=== PATIENT | male | born 1955 | race Caucasian/White ===

== ENCOUNTER 2016-07-12 09:21 | Emergency (ER) | payer MEDICAID ==
--- NOTE | 2016-07-12 10:08 | EDM.PDOC ---
[id number] 4d RT ABD PAIN Time Seen by Provider: 07/12/16 09:55 Source: Reports: Patient, Family History Limitations: Reports: No limitations - History of Present Illness INITIAL COMMENTS - FREE TEXT/NARRATIVE: 61-year-old male who had a radical prostatectomy 10 days ago was doing better but over the past 3 days has worsened with increased abdominal pain. He was in the emergency room 2 days ago with acute urinary retention. He is now developing a fever, and any oral intake causes increased pain. He cannot get up out of bed without assistance. Location: generalized Quality: Reports: cramping, stabbing Severity: moderate Associated Symptoms: Reports: fever/chills, malaise. Denies: chest pain, diarrhea, nausea/vomiting - Related Data Allergies/ADRs: Allergies Allergy/AdvReac Type Severity Reaction Status Date / Time No Known Allergies Allergy Verified 07/12/16 09:35 Home Meds: Home Meds Acetaminophen [Tylenol Extra Strength] 2 tab PO Q8H PRN 07/12/16 [History] Aspirin [Adult Low Dose Aspirin EC] 81 mg PO DAILY 07/12/16 [History] Lisinopril [Prinivil] 40 mg PO DAILY 07/12/16 [History] Metoprolol Succinate [Toprol XL] 50 mg PO DAILY 07/12/16 [History] Multivitamin [Multi-Day Vitamins] 1 tab PO DAILY 07/12/16 [History] Pravastatin Sodium [Pravachol] 20 mg PO BEDTIME 07/12/16 [History] Sennosides/Docusate Sodium [Senokot-S Tablet] 2 each PO BEDTIME 07/12/16 [ History] Past Medical History Cardiovascular History: Reports: High cholesterol, Hypertension, Other (see below) Other Cardiovascular History: ductus Gastrointestinal History: Reports: GERD Genitourinary History: Reports: Prostate disorder Musculoskeletal History: Reports: Fracture Other Musculoskeletal History: l arm Oncologic (Cancer) History: Reports: Pancreatic - Infectious Disease History Infectious Disease History: Reports: C-difficile - Past Surgical History GI Surgical History: Reports: Colonoscopy Male Surgical History: Reports: Prostatectomy Social & Family History - Tobacco Use Smoking Status *Q: Never Smoker Second Hand Smoke Exposure: No - Caffeine Use Caffeine Use: Reports: Soda - Alcohol Use Days Per Week of Alcohol Use: 1 Number of Drinks Per Day: 1 Total Drinks Per Week: 1 - Recreational Drug Use Recreational Drug Use: No ED ROS GENERAL - Review of Systems Review Of Systems: See Below Constitutional: Reports: fever, chills, malaise, weakness HEENT: Reports: No symptoms Respiratory: Denies: Shortness of Breath Cardiovascular: Denies: Chest pain GI/Abdominal: Reports: Abdominal pain, Decreased appetite (Pain with eating) ED EXAM, GI/ABD - Physical Exam Exam: See Below Exam Limited By: No limitations General Appearance: alert, no apparent distress Eyes: bilateral: normal appearance Head: atraumatic Respiratory/Chest: no respiratory distress, lungs clear Cardiovascular: regular rate, rhythm, tachycardia GI/Abdominal: normal bowel sounds, soft, tenderness (Diffusely tender to palpation, incisions look excellent) Extremities: normal inspection. No: pedal edema Neurological: alert, oriented Psychiatric: normal affect, normal mood Skin Exam: Warm, Dry Course - Vital Signs Last Recorded V/S: Last Vital Signs Temp 99.0 F 07/12/16 12:09 Pulse 105 H 07/12/16 12:09 Resp 16 07/12/16 12:09 BP 119/62 07/12/16 12:09 Pulse Ox 93 L 07/12/16 12:09 - Orders/Labs/Meds Orders: Active Orders 24 hr Category Date Time Status CULTURE BLOOD [BC] Stat Lab 07/12/16 10:15 Received CULTURE BLOOD [BC] Urgent Lab 07/12/16 10:20 Received Blood Culture x2 Reflex Set [OM.PC] Urgent Oth 07/12/16 10:15 Ordered Labs: Laboratory Tests 07/12/16 07/12/16 07/12/16 Range/Units 10:02 10:11 10:11 WBC 5.8 (4.5-11.0) K/uL RBC 3.39 L (4.30-5.90) M/uL Hgb 10.2 L (12.0-15.0) g/dL Hct 32.3 L (40.0-54.0) % MCV 95 (80-98) fL MCH 30 (27-31) pg MCHC 32 (32-36) % Plt Count 252 (150-400) K/uL Neut % (Auto) 91 H (36-66) % Lymph % (Auto) 5 L (24-44) % [place] % (Auto) 4 (2-6) % Eos % (Auto) 0 L (2-4) % Baso % (Auto) 0 (0-1) % Sodium 137 L (140-148) mmol/L Potassium 3.8 (3.6-5.2) mmol/L Chloride 101 (100-108) mmol/L Carbon Dioxide 29 (21-32) mmol/L Anion Gap 10.8 (5.0-14.0) mmol/L BUN 29 H (7-18) mg/dL Creatinine 2.0 H (0.8-1.3) mg/dL Est Cr Clr Drug Dosing 42.57 mL/min Estimated GFR (MDRD) 34 L (>60) Glucose 121 H (74-106) mg/dL Lactic Acid 0.8 (0.7-2.1) mmol/L Calcium 8.4 L (8.5-10.1) mg/dL Urine Color Urine Appearance Urine pH (4.5-8.0) Ur Specific [place] (1.008-1.030) Urine Protein (NEGATIVE) mg/dL Urine Glucose (UA) (NEGATIVE) mg/dL Urine Ketones (NEGATIVE) mg/dL Urine Occult Blood (NEGATIVE) Urine Nitrite (NEGAITVE) Urine Bilirubin (NEGATIVE) Urine Urobilinogen (NORMAL) mg/dL Ur Leukocyte Esterase (NEGATIVE) Urine RBC (0-5) Urine WBC (0-5) Ur Epithelial Cells Amorphous Sediment Urine Bacteria Urine Mucus Urine Other 07/12/16 Range/Units 11:17 WBC (4.5-11.0) K/uL RBC (4.30-5.90) M/uL Hgb (12.0-15.0) g/dL Hct (40.0-54.0) % MCV (80-98) fL MCH (27-31) pg MCHC (32-36) % Plt Count (150-400) K/uL Neut % (Auto) (36-66) % Lymph % (Auto) (24-44) % [place] % (Auto) (2-6) % Eos % (Auto) (2-4) % Baso % (Auto) (0-1) % Sodium (140-148) mmol/L Potassium (3.6-5.2) mmol/L Chloride (100-108) mmol/L Carbon Dioxide (21-32) mmol/L Anion Gap (5.0-14.0) mmol/L BUN (7-18) mg/dL Creatinine (0.8-1.3) mg/dL Est Cr Clr Drug Dosing mL/min Estimated GFR (MDRD) (>60) Glucose (74-106) mg/dL Lactic Acid (0.7-2.1) mmol/L Calcium (8.5-10.1) mg/dL Urine Color Yellow Urine Appearance Slightly cloudy Urine pH 5.0 (4.5-8.0) Ur Specific [place] 1.010 (1.008-1.030) Urine Protein Negative (NEGATIVE) mg/dL Urine Glucose (UA) Normal (NEGATIVE) mg/dL Urine Ketones Negative (NEGATIVE) mg/dL Urine Occult Blood Large (NEGATIVE) Urine Nitrite Negative (NEGAITVE) Urine Bilirubin Small (NEGATIVE) Urine Urobilinogen Normal (NORMAL) mg/dL Ur Leukocyte Esterase Negative (NEGATIVE) Urine RBC 20-30 H (0-5) Urine WBC 0-5 (0-5) Ur Epithelial Cells Rare Amorphous Sediment Not seen Urine Bacteria Not seen Urine Mucus Few Urine Other - Re-Assessments/Exams Free Text/Narrative Re-Assessment/Exam: 07/12/16 11:47 CBC BMP and UA were obtained. White count was normal, urine was clear, creatinine was 2.0. A CT of the abdomen and pelvis was done without contrast which showed some pelvic collection of fluid which was felt to possibly be hematoma, but in discussing with the urologist who did the surgery he felt these were likely remnants of lymph node removal. Blood cultures were obtained because of the fever. The urologist recommended placing the patient on antibiotics through the weekend and he will talk with the patient on Friday. Departure - Departure Time of Disposition: 12:11 Disposition: Home, Self-Care 01 Condition: good Clinical Impression: Postoperative fever Abdominal pain Qualifiers: Abdominal location: lower abdomen, unspecified Qualified Code(s): R10.30 - Lower abdominal pain, unspecified Instructions: Fever, Adult Referrals: Johnathan Rojas PA-C [Primary Care Provider] - Forms: ED Department Discharge Care Plan Goals: Take antibiotic twice daily with food as prescribed and continue your other medications. Continue treating pain as needed and return if worsening or concerns. Dr. Terry wants to hear from you on Friday regarding your progress. - My Orders Last 24 Hours: My Active Orders 07/12/16 10:15 CULTURE BLOOD [BC] Stat Blood Culture x2 Reflex Set [OM.PC] Urgent 07/12/16 10:20 CULTURE BLOOD [BC] Urgent - Assessment/Plan Last 24 Hours: My Active Orders 07/12/16 10:15 CULTURE BLOOD [BC] Stat Blood Culture x2 Reflex Set [OM.PC] Urgent 07/12/16 10:20 CULTURE BLOOD [BC] Urgent
--- NOTE | 2016-07-12 11:22 | CT ---
CT abdomen and pelvis Total DLP 1130. Findings: There is streaky density within the right lung base. There is elevation of the right hemid iaphragm. Minimal atelectatic change left lung base. Fatty infiltration of the liver. Gallbladder wi thin normal limits. Pancreas demonstrates fatty infiltration of the uncinate process and head. Splee n within normal limits. Adrenal glands are within normal limits. No dilated loops of small bowel. La rge amount of fecal residual. The appendix is nonvisualized. Terminal ileum within normal limits. Th ere is a right renal cyst up to 5 cm. Exophytic 1 cm mass right lateral kidney with Hounsfield units of 50. Probable other cysts within the right kidney. No hydronephrosis within the right kidney. No hydroureter on the right. Perinephric fat stranding left kidney. No hydronephrosis left kidney. Athe rosclerotic nonaneurysmal aorta. Bladder is decompressed. Anteriorly and eccentric to the right in the bladder is a focal 5 mm density of increased attenuati on. Referred axial image #[id number]. Along the right pelvic sidewall musculature eccentric to the right is a 6.6 cm AP mass x 4.3 cm transverse mass measuring 6.7 cm and superior to inferior dimension. Ther e is mixed high attenuation within it which appears heterogeneous and increased. Thickened rim about it. Tiny focus of air within it superiorly. Adjacent to the left anterior aspect of the bladder and just deep to the left common femoral artery is a smaller collection measuring 2.8 cm in maximal dim ension. Trace amount of fluid at the prostate for prostate bed. There are areas of abdominal wall gonzalez bcutaneous foci of air. A tiny amount of intraperitoneal air is evident as well. Directly above the umbilicus is subcutaneous hazy density extending into the musculature without focal fluid collection . Mild amount of paracolic gutter fluid bilaterally may be postoperative. Impression: 1. Status post prostatectomy with bilateral right greater than left is complex fluid collections martha ng the pelvic sidewalls. Largest on the right with size measurements above. Tiny focus of air. Findi ngs could indicate a hematoma. Infected hematoma could have this appearance. 2. No hydronephrosis. 3. Probable cysts and hemorrhagic cyst right kidney but should be confirmed with ultrasound or CT ur ogram follow-up. 4. Streaky density right lung base may indicate atelectasis. Developing infiltrate not excluded. 5. Subcutaneous skin thickening at the midline directly above the umbilicus. Correlate for celluliti s in this location. 6. Tiny focus of increased attenuation at 5 mm within the right lateral anterior aspect of the bladd er. Blood clot could have this appearance. Tiny mass not excluded. Consider ultrasound or cystoscopy follow-up.
[2016-07-12 12:10] VITALS: BP 119/62
== END 2016-07-12 12:11 | disposition home or self-care (01) ==
LOC: JP.ED 09:21
DX: R50.82 Postprocedural fever (principal); R10.30 Lower abdominal pain, unspecified; I10 Essential (primary) hypertension; E78.00 Pure hypercholesterolemia, unspecified; K21.9 Gastro-esophageal reflux disease without esophagitis; Z85.07 Personal history of malignant neoplasm of pancreas; Z90.79 Acquired absence of other genital organ(s); Z79.82 Long term (current) use of aspirin; Z79.899 Other long term (current) drug therapy
CPT/HCPCS: 36415; 74176; 74176-26; 80048; 81001; 83605; 85025; 87040; 99284-25

== ENCOUNTER 2019-01-21 06:57 | Day surgery (SDC) | payer MEDICAID ==
[2019-01-21] MEDS ORDERED: Sodium Chloride 0.9% 1,000 ML IV SCH (07:45)
[2019-01-21] MEDS ORDERED: Midazolam 1 MG/ML 2 ML SDV ONE (08:00)
[2019-01-21] MEDS ORDERED: Propofol 200 MG/20 ML SDV ONE (08:00)
[2019-01-21] MEDS ORDERED: fentaNYL 100 MCG/2 ML SDV ONE (08:00)
[2019-01-21 10:31] VITALS: BP 108/69; PULSE 94
--- NOTE | 2019-01-21 11:45 | OR ---
DATE OF PROCEDURE: 01/21/2019 SURGEON: Gerber Ramon MD PROCEDURE: Colonoscopy. FINDINGS: 1. No prostate cancer, malignancy-associated findings. 2. Ascending colon polyp, approximately 5 mm, completely removed using hot biopsy forceps. 3. Transverse colon polyp, approximately 8 mm, completely removed using hot biopsy forceps. 4. Diverticulosis, very mild, limited to sigmoid colon without evidence of diverticulitis. COMPLICATIONS: None. LABELLING MACHINE OPERATOR: None. PREOPERATIVE DIAGNOSIS: History of prostate cancer/screening colonoscopy. POSTOPERATIVE DIAGNOSIS: History of prostate cancer/screening colonoscopy. RISKS: Risks, benefits, alternatives, and limitations including, but not limited to infection, bleeding, and perforation were explained to the patient, and they wished to proceed. PROCEDURE IN DETAIL: The patient was placed in left lateral decubitus position. Digital rectal exam was performed without abnormality. The scope was introduced atraumatically to the ileocecal valve. The scope was brought back through the ascending, transverse, descending colon, and retroflexed. The polyps were completely removed. There was no evidence of colitis. No masses. No concerning lesions. No abnormalities on retroflexion. The patient tolerated the procedure well. Gerber Ramon MD /[id number]
== END 2019-01-21 10:03 | disposition home or self-care (01) ==
LOC: JP.SDS 06:57
PROVIDERS: ATTEND Surgery
DX: Z12.11 Encounter for screening for malignant neoplasm of colon (principal); D12.2 Benign neoplasm of ascending colon; D12.3 Benign neoplasm of transverse colon; K57.30 Diverticulosis of large intestine without perforation or abscess without bleeding; I10 Essential (primary) hypertension; I70.0 Atherosclerosis of aorta; Z88.8 Allergy status to other drugs, medicaments and biological substances; Z85.46 Personal history of malignant neoplasm of prostate
CPT/HCPCS: 45384; J2250; J2704; J3010; 88305

== ENCOUNTER 2019-03-30 11:07 | Emergency (ER) | payer MEDICAID ==
[2019-03-30] MEDS ORDERED: Aspirin 81 MG Tab.Chew PO ONE (11:42)
[2019-03-30] MEDS ORDERED: Sodium Chloride 0.9% 1,000 ML IV SCH (11:45)
--- NOTE | 2019-03-30 11:46 | EDM.PDOC ---
ED HPI GENERAL MEDICAL PROBLEM - General Chief Complaint: Chest Pain Stated Complaint: S.O.B. LIGHT HEADED Time Seen by Provider: 03/30/19 11:36 Source of Information: Reports: Patient, Family, Old Records, RN Notes Reviewed History Limitations: Reports: No Limitations - History of Present Illness INITIAL COMMENTS - FREE TEXT/NARRATIVE: 63-year-old gentleman presents emergency department a complaint of shortness of breath with chest pain. He has a known history of a patent ductus arteriosus, prostate cancer with metastases currently undergoing chemotherapy he does take a daily aspirin. States over the last 3 days he is gotten progressively more short of breath particularly when he exerts himself he is also noticed palpitations. No history of pulmonary embolism left chest Pain Score (Numeric/FACES): 1 - Related Data Allergies Allergy/AdvReac Type Severity Reaction Status Date / Time albuterol [From ProAir HFA] Allergy Cannot Verified 03/30/19 11:17 Remember Home Meds: Home Meds Acetaminophen [Tylenol Extra Strength] 2 tab PO Q8H PRN 07/12/16 [History] Aspirin [Adult Low Dose Aspirin EC] 81 mg PO DAILY 07/12/16 [History] Lisinopril [Prinivil] 40 mg PO DAILY 07/12/16 [History] Metoprolol Succinate [Toprol XL] 50 mg PO DAILY 07/12/16 [History] Multivitamin [Multi-Day Vitamins] 1 tab PO DAILY 07/12/16 [History] Pravastatin Sodium [Pravachol] 80 mg PO BEDTIME 07/12/16 [History] Sennosides/Docusate Sodium [Senokot-S Tablet] 2 each PO BEDTIME 07/12/16 [ History] Calcium Carbonate/Vitamin D3 [Calcium 1,000 + D3 Caplet] 1 tab PO DAILY [History] Pantoprazole Sodium [Protonix] 20 mg PO DAILY 01/19/19 [History] predniSONE [Prednisone] 5 mg PO BID 01/19/19 [History] Leuprolide [Lupron Depot 3-Month] 1 injection INJECT ASDIRECTED 03/30/19 [ History] dexAMETHasone [Dexamethasone] 2 mg PO BEDTIME 03/30/19 [History] dexAMETHasone [Dexamethasone] 4 mg PO DAILY 03/30/19 [History] Past Medical History Cardiovascular History: Reports: Heart Murmur, High Cholesterol, Hypertension, Other (See Below) Other Cardiovascular History: ductus Gastrointestinal History: Reports: GERD Genitourinary History: Reports: Prostate Disorder Musculoskeletal History: Reports: Fracture Other Musculoskeletal History: l arm, l hip Oncologic (Cancer) History: Reports: Bone, Prostate - Infectious Disease History Infectious Disease History: Reports: C-Difficile - Past Surgical History GI Surgical History: Reports: Colonoscopy, Polypectomy Oncologic Surgical History: Reports: Mastectomy Social & Family History - Tobacco Use Smoking Status *Q: Never Smoker - Caffeine Use Caffeine Use: Reports: Soda - Recreational Drug Use Recreational Drug Use: No ED ROS GENERAL - Review of Systems Review Of Systems: See Below Constitutional: Reports: No Symptoms. Denies: Diaphoresis HEENT: Reports: No Symptoms Respiratory: Reports: Shortness of Breath. Denies: Wheezing, Cough, Sputum Cardiovascular: Reports: Chest Pain, Dyspnea on Exertion GI/Abdominal: Reports: No Symptoms : Reports: No Symptoms Musculoskeletal: Reports: No Symptoms Skin: Reports: No Symptoms ED EXAM, GENERAL - Physical Exam Exam: See Below Exam Limited By: No Limitations General Appearance: Alert, WD/WN, No Apparent Distress Head: Atraumatic, Normocephalic Neck: Normal Inspection, Supple, Non-Tender, Full Range of Motion Respiratory/Chest: No Respiratory Distress, Lungs Clear, Normal Breath Sounds, No Accessory Muscle Use, Chest Non-Tender Cardiovascular: No Murmur, Tachycardia GI/Abdominal: Soft, Non-Tender Extremities: Normal Inspection, No Pedal Edema Course - Vital Signs Last Recorded V/S: Last Vital Signs Temp 96.8 F 03/30/19 11:19 Pulse 109 H 03/30/19 13:06 Resp 20 03/30/19 13:06 BP 108/57 L 03/30/19 13:06 Pulse Ox 99 03/30/19 13:06 - Orders/Labs/Meds Orders: Active Orders 24 hr Category Date Time Status Cardiac Monitoring [RC] .As Directed Care 03/30/19 11:42 Active EKG Documentation Completion [RC] ASDIRECTED Care 03/30/19 11:43 Active Peripheral IV Care [RC] . DIRECTED Care 03/30/19 11:42 Active Sodium Chloride 0.9% [Normal Saline] 1,000 ml Med 03/30/19 11:45 Active IV ASDIRECTED Sodium Chloride 0.9% [Saline Flush] Med 03/30/19 11:42 Active 10 ml FLUSH ASDIRECTED PRN Peripheral IV Insertion Adult [OM.PC] Stat Oth 03/30/19 11:42 Ordered EKG 12 Lead [EK] Stat Ther 03/30/19 11:43 Ordered Medication Orders Sodium Chloride (Normal Saline) 1,000 mls @ 500 mls/hr IV ASDIRECTED DONOVAN Last Admin: 03/30/19 11:48 Dose: 500 mls/hr Sodium Chloride (Saline Flush) 10 ml FLUSH ASDIRECTED PRN PRN Reason: Keep Vein Open Last Admin: 03/30/19 13:10 Dose: 10 ml Admin: 03/30/19 11:52 Dose: 10 ml Labs: Laboratory Tests 03/30/19 03/30/19 03/30/19 Range/Units 11:42 11:42 11:42 WBC 2.9 L (4.5-11.0) K/uL RBC 3.15 L (4.30-5.90) M/uL Hgb 8.1 L D (12.0-15.0) g/dL Hct 27.6 L (40.0-54.0) % MCV 88 (80-98) fL MCH 26 L (27-31) pg MCHC 29 L (32-36) % Plt Count 233 (150-400) K/uL Neut % (Auto) 75 H (36-66) % Lymph % (Auto) 20 L (24-44) % [place] % (Auto) 3 (2-6) % Eos % (Auto) 1 L (2-4) % Baso % (Auto) 0 (0-1) % D-Dimer, Quantitative 1190 H (0.0-400.0) ng/mL Sodium 135 L (140-148) mmol/L Potassium 3.9 (3.6-5.2) mmol/L Chloride 101 (100-108) mmol/L Carbon Dioxide 26 (21-32) mmol/L Anion Gap 11.9 (5.0-14.0) mmol/L BUN 24 H (7-18) mg/dL Creatinine 1.1 (0.8-1.3) mg/dL Est Cr Clr Drug Dosing 79.92 mL/min Estimated GFR (MDRD) > 60 (>60) Glucose 187 H (74-106) mg/dL Lactic Acid (0.4-2.0) mmol/L Calcium 8.5 (8.5-10.1) mg/dL Total Bilirubin 0.2 (0.2-1.0) mg/dL AST 30 (15-37) U/L ALT 28 (12-78) U/L Alkaline Phosphatase 536 H (46-116) U/L Troponin I < 0.017 (0.000-0.056) ng/mL NT-Pro-B Natriuret Pep 41 (5-125) pg/mL Total Protein 6.9 (6.4-8.2) g/dL Albumin 3.5 (3.4-5.0) g/dL Globulin 3.4 (2.3-3.5) g/dL Albumin/Globulin Ratio 1.0 L (1.2-2.2) 03/30/19 Range/Units 11:42 WBC (4.5-11.0) K/uL RBC (4.30-5.90) M/uL Hgb (12.0-15.0) g/dL Hct (40.0-54.0) % MCV (80-98) fL MCH (27-31) pg MCHC (32-36) % Plt Count (150-400) K/uL Neut % (Auto) (36-66) % Lymph % (Auto) (24-44) % [place] % (Auto) (2-6) % Eos % (Auto) (2-4) % Baso % (Auto) (0-1) % D-Dimer, Quantitative (0.0-400.0) ng/mL Sodium (140-148) mmol/L Potassium (3.6-5.2) mmol/L Chloride (100-108) mmol/L Carbon Dioxide (21-32) mmol/L Anion Gap (5.0-14.0) mmol/L BUN (7-18) mg/dL Creatinine (0.8-1.3) mg/dL Est Cr Clr Drug Dosing mL/min Estimated GFR (MDRD) (>60) Glucose (74-106) mg/dL Lactic Acid 2.0 (0.4-2.0) mmol/L Calcium (8.5-10.1) mg/dL Total Bilirubin (0.2-1.0) mg/dL AST (15-37) U/L ALT (12-78) U/L Alkaline Phosphatase (46-116) U/L Troponin I (0.000-0.056) ng/mL NT-Pro-B Natriuret Pep (5-125) pg/mL Total Protein (6.4-8.2) g/dL Albumin (3.4-5.0) g/dL Globulin (2.3-3.5) g/dL Albumin/Globulin Ratio (1.2-2.2) Meds: Medications Generic Name Dose Route Start Last Admin Trade Name Freq PRN Reason Stop Dose Admin Sodium Chloride 1,000 mls @ 500 mls/hr 03/30/19 11:45 03/30/19 11:48 Normal Saline IV 500 mls/hr ASDIRECTED DONOVAN Administration Sodium Chloride 10 ml 03/30/19 11:42 03/30/19 13:10 Saline Flush FLUSH 10 ml ASDIRECTED PRN Administration Keep Vein Open Discontinued Medications Generic Name Dose Route Start Last Admin Trade Name Freq PRN Reason Stop Dose Admin Aspirin 324 mg 03/30/19 11:42 03/30/19 11:47 Aspirin PO 03/30/19 11:43 324 mg ONETIME ONE Administration Sodium Chloride 100 mls @ 4 mls/sec 03/30/19 12:45 03/30/19 13:11 Normal Saline IV 03/30/19 12:46 4 mls/sec ASDIRECTED DONOVAN Administration Iopamidol 100 ml 03/30/19 12:35 03/30/19 13:10 [id number] (76%) IV 03/30/19 12:36 100 ml . DIRECTED ONE Administration Departure - Departure Time of Disposition: 15:00 Disposition: Home, Self-Care 01 Condition: Fair Clinical Impression: Dyspnea Qualifiers: Dyspnea type: dyspnea on exertion Qualified Code(s): R06.09 - Other forms of dyspnea Referrals: Delroy Cardoza MD [Primary Care Provider] - Forms: ED Department Discharge Additional Instructions: Recommend picking up a blood pressure cuff, stop your metoprolol take your blood pressure and heart rate twice a day at random times collect 3 to 4 days of data then follow-up with your primary care for reevaluation. Call or return to the emergency department worsening of symptoms Sepsis Event Note - Evaluation Sepsis Screening Result: No Definite Risk - Focused Exam Vital Signs: Vital Signs Temp Pulse Resp BP Pulse Ox 03/30/19 13:06 109 H 20 108/57 L 99 03/30/19 11:19 96.8 F 121 H 17 132/72 97 03/30/19 11:14 98.6 F 120 H 22 H 132/72 98 Date Exam was Performed: 03/30/19 Time Exam was Performed: 14:57 - My Orders Last 24 Hours: My Active Orders 03/30/19 11:42 Cardiac Monitoring [RC] .As Directed Peripheral IV Care [RC] . DIRECTED Sodium Chloride 0.9% [Saline Flush] 10 ml FLUSH ASDIRECTED PRN Peripheral IV Insertion Adult [OM.PC] Stat 03/30/19 11:43 EKG Documentation Completion [RC] ASDIRECTED EKG 12 Lead [EK] Stat 03/30/19 11:45 Sodium Chloride 0.9% [Normal Saline] 1,000 ml IV ASDIRECTED - Assessment/Plan Last 24 Hours: My Active Orders 03/30/19 11:42 Cardiac Monitoring [RC] .As Directed Peripheral IV Care [RC] . DIRECTED Sodium Chloride 0.9% [Saline Flush] 10 ml FLUSH ASDIRECTED PRN Peripheral IV Insertion Adult [OM.PC] Stat 03/30/19 11:43 EKG Documentation Completion [RC] ASDIRECTED EKG 12 Lead [EK] Stat 03/30/19 11:45 Sodium Chloride 0.9% [Normal Saline] 1,000 ml IV ASDIRECTED Plan: Assessment Acuity = acute Site and laterality = dyspnea on exertion complicating the patient with known history of prostate cancer with metastases Etiology = unknown Manifestations = none Location of injury = Home Lab values = WBC low at 2.9 consistent leukopenia, hemoglobin low at 8.1 consistent with normochromic anemia d-dimer elevated 1190 uncertain significance troponin was negative chest x-ray shows no acute process CT scan angios shows no pulmonary embolism EKG no signs of ST elevation or depression Plan Did review lab work with him he was able to ambulate around the emergency department without difficulty O2 saturations never dipped below 98% however at the end of that he felt dyspneic heart rate did respond up to the 140s but then back down to around 100 I did review cardiology's note she has had a heart cath in 2018 after his abnormal stress test showed normal coronary arteries cardiology was suspicious for drug involvement causing the dyspnea versus small vessel ischemic disease. 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
[2019-03-30] MEDS: Sodium Chloride 0.9% 10 ML Syringe FLUSH PRN ×2 (11:52→13:10)
--- NOTE | 2019-03-30 12:28 | CRLCR ---
Indication: Chest pain Technique: Chest 1 view Comparison: CT chest February 10, 2019 Findings/Impression: Cardiovascular and mediastinum: Heart size and vasculature are normal in caliber and appearance. Mediastinum is within normal limits. Lungs and pleural space: Lungs are clear. No sign of infiltrate or mass. No sign of pleural effusion. No pneumothorax. Bones and soft tissues: Stable elevation of the right hemidiaphragm. Dictated by Juliette Carlos MD @ Mar 30 2019 12:25PM Signed by Dr. Juliette Carlos @ Mar 30 2019 12:26PM
[2019-03-30] MEDS ORDERED: Iopamidol 755 Mg/ML 100 ML Bottle IV ONE (12:35)
[2019-03-30] MEDS ORDERED: Sodium Chloride 0.9% 100 ML IV SCH (12:45)
[2019-03-30 13:56] VITALS: BP 108/57; PULSE 109
--- NOTE | 2019-03-30 14:07 | CRLCT ---
INDICATION: Chest pain, tachycardia, elevated D-dimer, history of prostate cancer TECHNIQUE: CT chest pulmonary PE protocol acquired with 100 cc Isovue 370 IV contrast. COMPARISON: None FINDINGS: Cardiovascular structures: Normal vascular enhancement of the pulmonary arteries, no sign of pulmonary embolism. Heart size is normal. No sign of aneurysm in the thoracic aorta. Mediastinum and [place]: No mass or adenopathy. Lungs: Clear. Pleura and pericardium: No effusions. Chest wall and axilla: No mass or adenopathy. Upper abdomen: Unremarkable. Bones: Scattered sclerotic lesions in the thoracic spine, sternum, and ribs, unchanged compared to the prior exam. IMPRESSION: No pulmonary embolism or pneumonia. Stable sclerotic lesions in the spine, sternum, and ribs, consistent with metastatic disease. Please note that all CT scans at this facility use dose modulation, iterative reconstruction, and/or weight-based dosing when appropriate to reduce radiation dose to as low as reasonably achievable. Dictated by Juliette Carlos MD @ Mar 30 2019 1:45PM Signed by Dr. Juliette Carlos @ Mar 30 2019 2:05PM
== END 2019-03-30 15:14 | disposition home or self-care (01) ==
LOC: JP.ED 11:07
DX: R06.09 Other forms of dyspnea (principal); I10 Essential (primary) hypertension; E78.00 Pure hypercholesterolemia, unspecified; K21.9 Gastro-esophageal reflux disease without esophagitis; Z88.8 Allergy status to other drugs, medicaments and biological substances; Z79.82 Long term (current) use of aspirin; Z79.899 Other long term (current) drug therapy
CPT/HCPCS: 36415; 71045; 71275; 80053; 83605; 83880; 84484; 85025; 85379; 93005; 96360; 96361; 99285; A9270; J7030; J7050; Q9967

== ENCOUNTER 2020-10-27 04:59 | Emergency (ER) | payer MEDICARE, BC ==
[2020-10-27 05:24] VITALS: BP 133/59; PULSE 99
[2020-10-27] MEDS ORDERED: HYDROmorphone 1 MG/ML Syringe IM ONE (05:42)
--- NOTE | 2020-10-27 05:56 | EDM.PDOC ---
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 The patient is currently on Lupron and receiving Xgeva. He gets Lupron every 4 months and the Xgeva every 3 months. He is due for Lupron in a couple of weeks and had his last round of Xgeva on 09/04/2020. The patient was seen in the orthopedic clinic on 10/24/2020 by LESA Christopher for evaluation of left upper extremity pain. The patient has had right shoulder pain but not usually involving his elbow, however, starting yesterday he started to have severe right elbow pain without loss of range of motion of the elbow that has not improved with the current regime of medications he is on including gabapentin 600 mg in the morning and 300 mg at night, lidocaine patches, icy hot, blue emu, or NSAIDs. He states the pain improves slightly with movement but then intensifies with sitting still. He denies any injury. He attributes the pain to his hormonal therapy although he has not had any new injections for nearly 2 months. 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 The patient is scheduled for an upcoming PET scan next week and reports that his PSA has been steadily increasing over the last year. There is a question as to whether he has a cervical radiculopathy and brachial plexus neuritis contributing to his bilateral shoulder pain. His PET scan is going to be performed at [facility] in [facility]. There is a history of a soft tissue mass in the posterior left paraspinal musculature was seen on PET scan on 03/08/2020. The patient is also followed by Ky Escobedo MD from radiation oncology at [facility] and his primary doctor is Dr. Delroy Cardoza at [facility]. right upper arm Pain Score (Numeric/FACES): 9 - Related Data Allergies Allergy/AdvReac Type Severity Reaction Status Date / Time albuterol [From ProAir HFA] Allergy Cannot Verified 10/27/20 05:41 Remember Home Meds: Home Meds Aspirin [Adult Low Dose Aspirin EC] 81 mg PO DAILY 07/12/16 [History] Lisinopril [Prinivil] 20 mg PO DAILY 07/12/16 [History] Metoprolol Succinate [Toprol XL] 75 mg PO DAILY 07/12/16 [History] Multivitamin [Multi-Day Vitamins] 1 tab PO DAILY 07/12/16 [History] Pravastatin Sodium [Pravachol] 80 mg PO BEDTIME 07/12/16 [History] Sennosides/Docusate Sodium [Senokot-S Tablet] 2 each PO BEDTIME 07/12/16 [History] Pantoprazole Sodium [Protonix] 20 mg PO DAILY 01/19/19 [History] predniSONE [Prednisone] 5 mg PO BID 01/19/19 [History] Ferrous Sulfate [Slow Release Iron] 142 mg PO BID 04/16/19 [History] Cholecalciferol (Vitamin D3) [Vitamin D] 5,000 unit PO BID 10/23/20 [History] Cyclobenzaprine [Flexeril] 10 mg PO TID PRN 10/23/20 [History] Gabapentin [Neurontin] 300 mg PO BID 10/23/20 [History] Tobramycin/Dexamethasone [Tobramycin-Dexameth Ophth Susp] 1 drop EYEBOTH Q4H 10/23/20 [History] amLODIPine Besylate [Norvasc] 2.5 mg PO DAILY 10/23/20 [History] dexAMETHasone [Dexamethasone] 2 mg PO BID 10/23/20 [History] diazePAM [Valium] 10 mg PO ASDIRECTED PRN 10/23/20 [History] Past Medical History Cardiovascular History: Reports: Heart Murmur, High Cholesterol, Hypertension, Other (See Below) Other Cardiovascular History: ductus Gastrointestinal History: Reports: GERD Genitourinary History: Reports: Prostate Disorder Musculoskeletal History: Reports: Fracture Other Musculoskeletal History: l arm, l hip Oncologic (Cancer) History: Reports: Bone, Prostate - Infectious Disease History Infectious Disease History: Reports: C-Difficile - Past Surgical History GI Surgical History: Reports: Colonoscopy, Polypectomy Male Surgical History: Reports: Prostatectomy Social & Family History - Tobacco Use Tobacco Use Status *Q: Never Tobacco User - Caffeine Use Caffeine Use: Reports: None - Recreational Drug Use Recreational Drug Use: No Review of Systems - Review of Systems Review Of Systems: See Below Constitutional: Reports: No Symptoms Eyes: Reports: No Symptoms Ears: Reports: No Symptoms Nose: Reports: No Symptoms Mouth/Throat: Reports: No Symptoms Respiratory: Reports: No Symptoms Cardiovascular: Reports: No Symptoms GI/Abdominal: Reports: No Symptoms Genitourinary: Reports: No Symptoms Musculoskeletal: Reports: Joint Pain (Severe right elbow pain that improves with movement and worsens with inactivity.) Skin: Reports: No Symptoms Neurological: Reports: Numbness, Tingling (Numbness and tingling of the right third, fourth, and fifth fingers consistent with the distribution of the ulnar nerve. This is worsened since the onset of the severe elbow pain yesterday.) Psychiatric: Reports: No Symptoms ED EXAM, GENERAL - Physical Exam Exam: See Below Exam Limited By: No Limitations General Appearance: Alert, Anxious, Moderate Distress Eye Exam: Bilateral Eye: EOMI, PERRL Head: Atraumatic, Normocephalic Extremities: Normal Range of Motion (Normal range of motion of the right shoulder and right elbow.) Neurological: Alert, Oriented, Normal Cognition, Sensory/Motor Deficit (Decreased sensation to light touch in the right hand along the ulnar distribution) Psychiatric: Anxious Course - Vital Signs Last Recorded V/S: Last Vital Signs Temp 36.2 C 10/27/20 05:20 Pulse 99 10/27/20 05:20 Resp 16 10/27/20 05:20 BP 133/59 L 10/27/20 05:20 Pulse Ox 97 10/27/20 05:20 - Orders/Labs/Meds Orders: Active Orders 24 hr Category Date Time Status C-REACTIVE PROTEIN [CHEM] Stat Lab 10/27/20 05:52 Received Labs: Laboratory Tests 10/27/20 Range/Units 05:52 WBC 3.3 L (4.5-11.0) K/uL RBC 2.38 L (4.30-5.90) M/uL Hgb 7.0 L (12.0-15.0) g/dL Hct 23.4 L (40.0-54.0) % MCV 98 (80-98) fL MCH 29 (27-31) pg MCHC 30 L (32-36) % Plt Count 114 L (150-400) K/uL ESR 95 H (0-20) mm/hr Meds: Medications Discontinued Medications Generic Name Dose Route Start Last Admin Trade Name Casey PRN Reason Stop Dose Admin Hydromorphone HCl 1 mg 10/27/20 05:42 10/27/20 05:48 Hydromorphone 1 Mg/Ml Syringe IM 10/27/20 05:43 1 mg ONETIME ONE Administration - Re-Assessments/Exams Free Text/Narrative Re-Assessment/Exam: 10/27/20 05:59 the patient is presenting with worrisome findings for cervical impingement or brachial plexus neuropathy involving the ulnar nerve distribution. He is currently awaiting a PET scan at [facility] [place] [facility] in [facility] next week. He has a history of hormone refractory metastatic prostate cancer with metastasis to the soft tissue and bones and is on Lupron and Xgeva. He was seen in the orthopedic clinic on 10/24/2020 for problems with left shoulder pain and at that time also had ulnar nerve involvement that the patient attributes to his chemotherapy with docetaxel and carboplatin. Tonight he presents with right elbow pain that is severe and worsens with inactivity but also has new onset of right ulnar nerve numbness in the right hand. This is a bit concerning for possible metastasis to the spine. He is requesting to be put on a narcotic pain medication for pain control. 10/27/20 06:36 the patient has had some relief of his pain to a 4 - 5 out of 10 after receiving Dilaudid 1 mg. His CBC is unremarkable. His erythrocyte sedimentation rate is elevated at 95 with an reactive protein of 4.17. 10/27/20 07:01 patient has significant inflammatory elevation evidenced by his elevated C-reactive protein and ESR. He likely has a developing right-sided ulnar neuropathy. Previously has been on steroids without much success, however, I do feel that he needs to contact his primary doctor to discuss long- term medical management of his pain. We did give him Dilaudid with some improvement in his pain, however, his expectations are to have a pain level of 2-3 which are not realistic. We will send him home with a small amount of Percocet 5/325 1 tablet every 4-6 hours as needed for severe pain dispensing 15 tablets. The patient normally sees Dr. Delroy Cardoza and I encouraged him to contact him for ongoing pain treatment as it is not the role of the ER to establish his palliative care for cancer pain. Patient understands and will try to get a hold of Dr. Cardoza or whoever is covering for him while he is in [place]. At this time the patient is suitable for discharge. Departure - Departure Time of Disposition: 07:04 Disposition: Home, Self-Care 01 Clinical Impression: Right elbow pain, Neuritis of right ulnar nerve - Discharge Information Instructions: Peripheral Neuropathy Referrals: Delroy Cardoza MD [Primary Care Provider] - Forms: ED Department Discharge Care Plan Goals: I have prescribed Percocet for you 1 tablet every 4 hours as needed for pain control with 15 tablets being dispensed. Please contact Dr. Cardoza's office to arrange for further pain management. Unfortunately, the emergency room is not the source for palliative care or pain management as we do not see patients on a regular basis and cannot manage their chronic or acute on chronic pain. Your inflammatory markers are quite high. I would talk with your oncologist about this as there may be some mitigating factors it can be done with high-dose steroids to reduce the inflammation. Sepsis Event Note (ED) - Evaluation Sepsis Screening Result: No Definite Risk - Focused Exam Vital Signs: Vital Signs Temp Pulse Resp BP Pulse Ox 10/27/20 05:20 36.2 C 99 16 133/59 L 97 - Problem List & Annotations (1) Neuritis of right ulnar nerve SNOMED Code(s): 18011905 Code(s): G56.21 - LESION OF ULNAR NERVE, RIGHT UPPER LIMB Status: Acute Priority: Medium Current Visit: Yes (2) Right elbow pain SNOMED Code(s): 79200533 Code(s): M25.521 - PAIN IN RIGHT ELBOW Status: Acute Priority: Medium Current Visit: Yes - Problem List Review Problem List Initiated/Reviewed/Updated: Yes - My Orders Last 24 Hours: My Active Orders 10/27/20 05:52 C-REACTIVE PROTEIN [CHEM] Stat - Assessment/Plan Last 24 Hours: My Active Orders 10/27/20 05:52 C-REACTIVE PROTEIN [CHEM] Stat
== END 2020-10-27 07:23 | disposition home or self-care (01) ==
LOC: JP.ED 04:59
DX: M25.521 Pain in right elbow (principal); G56.21 Lesion of ulnar nerve, right upper limb; E78.00 Pure hypercholesterolemia, unspecified; I10 Essential (primary) hypertension; K21.9 Gastro-esophageal reflux disease without esophagitis; Z79.899 Other long term (current) drug therapy; Z88.8 Allergy status to other drugs, medicaments and biological substances
CPT/HCPCS: 36415; 85027; 85651; 86140; 96372; 99283; J1170

== ENCOUNTER 2020-11-18 15:17 | Emergency (ER) | payer MEDICARE, BC ==
[2020-11-18 15:39] VITALS: BP 114/55; PULSE 72
[2020-11-18] MEDS ORDERED: diphenhydrAMINE 50 MG/ML SDV IVPUSH ONE (15:41)
[2020-11-18] MEDS ORDERED: Acetaminophen 1,000 MG in Premix Bag 1 BAG IV ONE (15:41)
[2020-11-18] MEDS ORDERED: Prochlorperazine 10 MG/2 ML SDV IVPUSH ONE (15:41)
[2020-11-18] MEDS ORDERED: Sodium Chloride 0.9% 10 ML Syringe FLUSH PRN (15:41)
[2020-11-18] MEDS ORDERED: Dextrose 5%-Lactated Ringers 1,000 ML IV SCH (15:45)
--- NOTE | 2020-11-18 15:47 | EDM.PDOC ---
ED HPI GENERAL MEDICAL PROBLEM - General Chief Complaint: Headache Stated Complaint: severe migraine Time Seen by Provider: 11/18/20 15:23 Source of Information: Reports: Patient, Family, RN Notes Reviewed History Limitations: Reports: No Limitations - History of Present Illness INITIAL COMMENTS - FREE TEXT/NARRATIVE: 65-year-old gentleman presents emergency department day complaint of migraine headache. 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 - Related Data Allergies Allergy/AdvReac Type Severity Reaction Status Date / Time albuterol [From ProAir HFA] Allergy Cannot Verified 11/18/20 15:28 Remember leuprolide [From Eligard] Allergy Other Verified 11/18/20 15:28 Home Meds: Home Meds Lisinopril [Prinivil] 20 mg PO DAILY 07/12/16 [History] Metoprolol Succinate [Toprol XL] 75 mg PO DAILY 07/12/16 [History] Multivitamin [Multi-Day Vitamins] 1 tab PO DAILY 07/12/16 [History] Pravastatin Sodium [Pravachol] 80 mg PO BEDTIME 07/12/16 [History] Sennosides/Docusate Sodium [Senokot-S Tablet] 2 each PO BEDTIME 07/12/16 [History] Pantoprazole Sodium [Protonix] 20 mg PO DAILY 01/19/19 [History] predniSONE [Prednisone] 5 mg PO BID 01/19/19 [History] Gabapentin [Neurontin] 300 mg PO BID 10/23/20 [History] diazePAM [Valium] 10 mg PO ASDIRECTED PRN 10/23/20 [History] Aspirin [Halfprin] 81 mg PO DAILY 11/15/20 [History] Cholecalciferol (Vitamin D3) [Vitamin D3] 2,000 unit PO DAILY 11/16/20 [History] Past Medical History Cardiovascular History: Reports: Heart Murmur, High Cholesterol, Hypertension, Other (See Below) Other Cardiovascular History: ductus Gastrointestinal History: Reports: GERD Genitourinary History: Reports: Prostate Disorder Musculoskeletal History: Reports: Fracture Other Musculoskeletal History: l arm, l hip Neurological History: Reports: Migraines Oncologic (Cancer) History: Reports: Bone (Metastatic), Prostate - Infectious Disease History Infectious Disease History: Reports: C-Difficile - Past Surgical History GI Surgical History: Reports: Colonoscopy, Polypectomy Male Surgical History: Reports: Prostatectomy Endocrine Surgical History: Reports: Other (See Below) Other Endocrine Surgeries/Procedures: pituitary enlargement. Oncologic Surgical History: Reports: Mastectomy Social & Family History - Tobacco Use Tobacco Use Status *Q: Never Tobacco User - Caffeine Use Caffeine Use: Reports: None ED ROS GENERAL - Review of Systems Review Of Systems: See Below Constitutional: Reports: No Symptoms HEENT: Reports: Ear Pain, Vision Change Respiratory: Reports: No Symptoms Cardiovascular: Reports: No Symptoms GI/Abdominal: Reports: Nausea, Vomiting Neurological: Reports: Headache - Physical Exam Exam: See Below Exam Limited By: No Limitations General Appearance: Alert, WD/WN, No Apparent Distress Eye Exam: Bilateral Eye: EOMI, Normal Fundi, PERRL Respiratory/Chest: No Respiratory Distress Course - Vital Signs Last Recorded V/S: Last Vital Signs Temp 97.6 F 11/18/20 15:35 Pulse 72 11/18/20 15:35 Resp 16 11/18/20 15:35 BP 114/55 L 11/18/20 15:35 Pulse Ox 97 11/18/20 15:35 - Orders/Labs/Meds Orders: Active Orders 24 hr Category Date Time Status Peripheral IV Care [RC] . DIRECTED Care 11/18/20 15:42 Active Dextrose 5%-Lactated Ringers 1,000 ml Med 11/18/20 15:45 Active IV ASDIRECTED Sodium Chloride 0.9% [Saline Flush] Med 11/18/20 15:41 Active 10 ml FLUSH ASDIRECTED PRN Peripheral IV Insertion Adult [OM.PC] Urgent Oth 11/18/20 15:41 Ordered Medication Orders Dextrose/Lactated Ringer's (Dextrose 5%-Lactated Ringers) 1,000 mls @ 999 mls/hr IV ASDIRECTED DONOVAN Last Admin: 11/18/20 15:58 Dose: 999 mls/hr Documented by: FRAN Sodium Chloride (Sodium Chloride 0.9% 10 Ml Syringe) 10 ml FLUSH ASDIRECTED PRN PRN Reason: Keep Vein Open Last Admin: 11/18/20 16:12 Dose: 10 ml Documented by: FRAN Meds: Medications Generic Name Dose Route Start Last Admin Trade Name Freq PRN Reason Stop Dose Admin Dextrose/Lactated Ringer's 1,000 mls @ 999 mls/hr 11/18/20 15:45 11/18/20 15:58 Dextrose 5%-Lactated Ringers IV 999 mls/hr ASDIRECTED DONOVAN Administration Sodium Chloride 10 ml 11/18/20 15:41 11/18/20 16:12 Sodium Chloride 0.9% 10 Ml Syringe FLUSH 10 ml ASDIRECTED PRN Administration Keep Vein Open Discontinued Medications Generic Name Dose Route Start Last Admin Trade Name Freq PRN Reason Stop Dose Admin Diphenhydramine HCl 50 mg 11/18/20 15:41 11/18/20 15:57 Diphenhydramine 50 Mg/Ml Sdv IVPUSH 11/18/20 15:42 50 mg ONETIME ONE Administration Acetaminophen 1,000 mg/ Premix 100 mls @ 400 mls/hr 11/18/20 15:41 11/18/20 16:00 IV 11/18/20 15:55 400 mls/hr NOW ONE Administration Prochlorperazine Edisylate 5 mg 11/18/20 15:41 11/18/20 15:56 Prochlorperazine 10 Mg/2 Ml Sdv IVPUSH 11/18/20 15:42 5 mg ONETIME ONE Administration Departure - Departure Time of Disposition: 17:33 Disposition: Home, Self-Care 01 Condition: Fair Clinical Impression: Migraine - Discharge Information Instructions: Migraine Headache, [id number] Referrals: Delroy Cardoza MD [Primary Care Provider] - Forms: ED Department Discharge Additional Instructions: Use Zofran as needed for nausea vomiting symptoms, continue to use Tylenol as needed for headache pain, please followup with your primary care provider in 3- 5 days if not better, please call return to the emergency department with worsening of symptoms. Sepsis Event Note (ED) - Evaluation Sepsis Screening Result: No Definite Risk - Focused Exam Vital Signs: Vital Signs Temp Pulse Resp BP Pulse Ox 11/18/20 15:35 97.6 F 72 16 114/55 L 97 11/18/20 15:31 97.6 F 72 16 114/55 L 97 - My Orders Last 24 Hours: My Active Orders 11/18/20 15:41 Sodium Chloride 0.9% [Saline Flush] 10 ml FLUSH ASDIRECTED PRN Peripheral IV Insertion Adult [OM.PC] Urgent 11/18/20 15:42 Peripheral IV Care [RC] . DIRECTED 11/18/20 15:45 Dextrose 5%-Lactated Ringers 1,000 ml IV ASDIRECTED - Assessment/Plan Last 24 Hours: My Active Orders 11/18/20 15:41 Sodium Chloride 0.9% [Saline Flush] 10 ml FLUSH ASDIRECTED PRN Peripheral IV Insertion Adult [OM.PC] Urgent 11/18/20 15:42 Peripheral IV Care [RC] . DIRECTED 11/18/20 15:45 Dextrose 5%-Lactated Ringers 1,000 ml IV ASDIRECTED Plan: Assessment Acuity = acute Site and laterality = migraine Etiology = unknown Manifestations = nausea vomiting now resolved Location of injury = Home Lab values = none Plan Good improvement 1 L fluids, 1 g Tylenol, 5 mg Compazine, 1 L fluids and 50 mg Benadryl, discharged home with Zofran 10 mg 1 tab p.o. 3 times daily as needed total #5 follow-up with his primary care next week if no improvement This note was dictated using [employer] voice recognition software please call with any questions on syntax or grammar.
== END 2020-11-18 17:58 | disposition home or self-care (01) ==
LOC: JP.ED 15:17
DX: G43.909 Migraine, unspecified, not intractable, without status migrainosus (principal); E78.00 Pure hypercholesterolemia, unspecified; I10 Essential (primary) hypertension; K21.9 Gastro-esophageal reflux disease without esophagitis; Z79.899 Other long term (current) drug therapy
CPT/HCPCS: 96374; 96375; 99283; J0131; J0780; J1200; J7121

== ENCOUNTER 2020-12-22 11:24 | Observation (INO) | payer MEDICARE, BC ==
[2020-12-22] MEDS ORDERED: Sodium Chloride 0.9% 10 ML Syringe FLUSH PRN ×2 (11:32→15:38)
--- NOTE | 2020-12-22 12:04 | EDM.PDOC ---
ED HPI GENERAL MEDICAL PROBLEM - General Chief Complaint: Neurological Problem Stated Complaint: PASSED OUT TWICE TODAY-FEELS WEAK Time Seen by Provider: 12/22/20 11:50 Source of Information: Reports: Patient, Family. Denies: Old Records History Limitations: Reports: Other (no old records) - History of Present Illness INITIAL COMMENTS - FREE TEXT/NARRATIVE: 65 yo male with known prostate CA and who is being tx'd with Lynparza by an oncologist in [place], [place] presents with progressive GALICIA and light-headedness over the past several days to the point that he nearly passed out a few times today. He denies any black or bloody stools or vomiting of blood. Reports having a hx of high iron levels. Onset: Gradual Duration: Day(s):, Getting Worse Location: Reports: Generalized Quality: Reports: Other (pain not reported) Severity: Severe (weakness and GALICIA) Improves with: Reports: Rest Worsens with: Reports: Movement (exertion) Context: Reports: Other (See HPI) Associated Symptoms: Reports: Shortness of Breath, Weakness. Denies: Fever/Chills Treatments WEAVER WIRE LOOM: Reports: Other (see below) (none) - Related Data Allergies Allergy/AdvReac Type Severity Reaction Status Date / Time albuterol [From ProAir HFA] Allergy Cannot Verified 12/22/20 11:48 Remember leuprolide [From Eligard] Allergy Other Verified 12/22/20 11:48 Home Meds: Home Meds Lisinopril [Prinivil] 20 mg PO DAILY 07/12/16 [History] Metoprolol Succinate [Toprol XL] 75 mg PO DAILY 07/12/16 [History] Multivitamin [Multi-Day Vitamins] 1 tab PO DAILY 07/12/16 [History] Pravastatin Sodium [Pravachol] 80 mg PO BEDTIME 07/12/16 [History] Sennosides/Docusate Sodium [Senokot-S Tablet] 2 each PO BEDTIME 07/12/16 [History] Pantoprazole Sodium [Protonix] 20 mg PO DAILY 01/19/19 [History] predniSONE [Prednisone] 5 mg PO BID 01/19/19 [History] Gabapentin [Neurontin] 300 mg PO BID 10/23/20 [History] diazePAM [Valium] 10 mg PO ASDIRECTED PRN 10/23/20 [History] Aspirin [Halfprin] 81 mg PO DAILY 11/15/20 [History] Cholecalciferol (Vitamin D3) [Vitamin D3] 2,000 unit PO DAILY 11/16/20 [History] Lynparza 150 mg PO BID 12/22/20 [History] oxyCODONE HCl/Acetaminophen [Oxycodone-Acetaminophen 5-325] 1 tab PO Q4HR PRN 12/22/20 [History] Past Medical History Cardiovascular History: Reports: Heart Murmur, High Cholesterol, Hypertension, Other (See Below) Other Cardiovascular History: ductus Gastrointestinal History: Reports: GERD Genitourinary History: Reports: Prostate Disorder Musculoskeletal History: Reports: Fracture Other Musculoskeletal History: l arm, l hip Neurological History: Reports: Migraines Oncologic (Cancer) History: Reports: Bone, Metastatic, Prostate - Infectious Disease History Infectious Disease History: Reports: C-Difficile - Past Surgical History GI Surgical History: Reports: Colonoscopy, Polypectomy Male Surgical History: Reports: Prostatectomy Endocrine Surgical History: Reports: Other (See Below) Other Endocrine Surgeries/Procedures: pituitary enlargement. Oncologic Surgical History: Reports: Mastectomy Social & Family History - Tobacco Use Tobacco Use Status *Q: Never Tobacco User - Caffeine Use Caffeine Use: Reports: None - Recreational Drug Use Recreational Drug Use: No ED ROS GENERAL - Review of Systems Review Of Systems: See Below Constitutional: Reports: Malaise, Weakness. Denies: Fever, Chills HEENT: Reports: No Symptoms Respiratory: Reports: Shortness of Breath. Denies: Hemoptysis Cardiovascular: Reports: Dyspnea on Exertion, Lightheadedness Endocrine: Reports: No Symptoms GI/Abdominal: Reports: No Symptoms. Denies: Black Stool, Bloody Stool, Hematemesis, Hematochezia, Melena : Reports: No Symptoms. Denies: Hematuria Musculoskeletal: Reports: No Symptoms Skin: Reports: No Symptoms Neurological: Reports: No Symptoms Psychiatric: Reports: No Symptoms - Physical Exam Exam: See Below Exam Limited By: No Limitations General Appearance: Alert, WD/WN, No Apparent Distress Eye Exam: Bilateral Eye: Normal Inspection Ears: Normal External Exam, Normal Canal, Hearing Grossly Normal, Normal TMs Nose: Normal Inspection, No Blood Throat/Mouth: Normal Inspection, Normal Lips, Normal Oropharynx, Normal Voice, No Airway Compromise Head Exam: Atraumatic, Normocephalic Neck: Normal Inspection Respiratory/Chest: No Respiratory Distress, Lungs Clear, Normal Breath Sounds, No Accessory Muscle Use Cardiovascular: Regular Rate, Rhythm, No Edema, Tachycardia GI/Abdominal: Normal Bowel Sounds, Soft, Non-Tender, No Distention Neuro Exam (Abbreviated): Alert, Oriented, CN II-XII Intact, Normal Cognition, No Motor/Sensory Deficits Back Exam: Normal Inspection. No: CVA Tenderness (R), CVA Tenderness (L) Extremities: Normal Inspection, Normal Range of Motion, Non-Tender, No Pedal Edema Psychiatric: Normal Affect, Normal Mood Skin Exam: Warm, Dry, Intact, No Rash, Pallor Course - Vital Signs Text/Narrative:: discussed with Dr. Bella @ 0400h Last Recorded V/S: Last Vital Signs Temp 37.7 C 12/22/20 17:53 Pulse 87 12/22/20 17:53 Resp 18 12/22/20 17:53 BP 96/41 L 12/22/20 17:53 Pulse Ox 98 12/22/20 16:00 - Orders/Labs/Meds Orders: Active Orders 24 hr Category Date Time Status RED BLOOD CELLS LP [BBK] Stat Lab 12/22/20 14:35 Results TYPE AND SCREEN [BBK] Stat Lab 12/22/20 14:35 Results Transfuse Red Blood Cells [COMM] Stat Oth 12/22/20 14:21 Ordered Medication Orders Acetaminophen (Acetaminophen 325 Mg Tab) 650 mg PO Q4H PRN PRN Reason: Pain (Mild 1-3)/fever Aspirin (Aspirin 81 Mg Tab.Ec) 81 mg PO DAILY [facility] Gabapentin (Gabapentin 300 Mg Cap*Pom*) 300 mg PO BID [facility] Lisinopril (Lisinopril 20 Mg Tab*Pom*) 20 mg PO DAILY [facility] Metoprolol Succinate (Metoprolol Succinate 25 Mg Tab.Er) 75 mg PO DAILY [facility] Non-Formulary Medication (Lynparza) 150 mg PO BID [facility] Ondansetron HCl (Ondansetron 4 Mg/2 Ml Sdv) 4 mg IV Q4H PRN PRN Reason: Nausea/Vomiting Oxycodone HCl (Oxycodone 5 Mg Tab) 5 mg PO Q4H PRN PRN Reason: Pain (moderate 4-6) Oxycodone/Acetaminophen (Acetaminophen/Oxycodone 325-5 Mg Tab) 1 tab PO Q4H PRN PRN Reason: Pain Pantoprazole Sodium (Pantoprazole 40 Mg Tab.Cr) 40 mg PO ACBREAKFAST DONOVAN Pravastatin 80mg*Pom (*) 0 each PO BEDTIME [facility] Polyethylene Glycol (Polyethylene Glycol 3350 Powder 17 Gm Packet) 17 gm PO DAILY PRN PRN Reason: Constipation Prednisone (Prednisone 5 Mg Tab*Pom*) 5 mg PO BIDMEALS [facility] Senna/Docusate Sodium (Docusate Sodium/Sennosides 50-8.6 Mg Tab) 2 tab PO BEDTIME [facility] Sodium Chloride (Sodium Chloride 0.9% 10 Ml Syringe) 10 ml FLUSH ASDIRECTED PRN PRN Reason: Keep Vein Open Labs: Laboratory Tests 12/22/20 12/22/20 12/22/20 Range/Units 11:44 11:44 12:02 WBC 2.5 L (4.5-11.0) K/uL RBC 1.65 L (4.30-5.90) M/uL Hgb 5.2 L* D (12.0-15.0) g/dL Hct 16.8 L (40.0-54.0) % MCV 102 H (80-98) fL MCH 32 H (27-31) pg MCHC 31 L (32-36) % Plt Count 56 L (150-400) K/uL Neut # (Auto) Sodium 138 L (140-148) mmol/L Potassium 4.1 (3.6-5.2) mmol/L Chloride 100 (100-108) mmol/L Carbon Dioxide 25 (21-32) mmol/L Anion Gap 17.1 H (5.0-14.0) mmol/L BUN 27 H (7-18) mg/dL Creatinine 1.5 H (0.8-1.3) mg/dL Est Cr Clr Drug Dosing 55.49 mL/min Estimated GFR (MDRD) 47 L (>60) Glucose 114 H (74-106) mg/dL Calcium 8.1 L (8.5-10.1) mg/dL Troponin I < 0.017 (0.000-0.056) ng/mL SARS CoV-2 RNA Rapid BELIA Negative 12/22/20 Range/Units 12:04 WBC 2.5 L (4.5-11.0) K/uL RBC (4.30-5.90) M/uL Hgb (12.0-15.0) g/dL Hct (40.0-54.0) % MCV (80-98) fL MCH (27-31) pg MCHC (32-36) % Plt Count (150-400) K/uL Neut # (Auto) 1.91 Sodium (140-148) mmol/L Potassium (3.6-5.2) mmol/L Chloride (100-108) mmol/L Carbon Dioxide (21-32) mmol/L Anion Gap (5.0-14.0) mmol/L BUN (7-18) mg/dL Creatinine (0.8-1.3) mg/dL Est Cr Clr Drug Dosing mL/min Estimated GFR (MDRD) (>60) Glucose (74-106) mg/dL Calcium (8.5-10.1) mg/dL Troponin I (0.000-0.056) ng/mL SARS CoV-2 RNA Rapid BELIA Meds: Medications Generic Name Dose Route Start Last Admin Trade Name Freq PRN Reason Stop Dose Admin Acetaminophen 650 mg 12/22/20 15:38 Acetaminophen 325 Mg Tab PO Q4H PRN Pain (Mild 1-3)/fever Aspirin 81 mg 12/23/20 09:00 Aspirin 81 Mg Tab.Ec PO DAILY [facility] Gabapentin 300 mg 12/22/20 21:00 Gabapentin 300 Mg Cap*Pom* PO BID [facility] Lisinopril 20 mg 12/23/20 09:00 Lisinopril 20 Mg Tab*Pom* PO DAILY [facility] Metoprolol Succinate 75 mg 12/23/20 09:00 Metoprolol Succinate 25 Mg Tab.Er PO DAILY [facility] Non-Formulary Medication 150 mg 12/22/20 21:00 Lynparza PO BID [facility] Ondansetron HCl 4 mg 12/22/20 15:38 Ondansetron 4 Mg/2 Ml Sdv IV Q4H PRN Nausea/Vomiting Oxycodone HCl 5 mg 12/22/20 17:14 Oxycodone 5 Mg Tab PO Q4H PRN Pain (moderate 4-6) Oxycodone/Acetaminophen 1 tab 12/22/20 15:38 Acetaminophen/Oxycodone 325-5 Mg Tab PO Q4H PRN Pain Pantoprazole Sodium 40 mg 12/23/20 07:30 Pantoprazole 40 Mg Tab.Cr PO ACBREAKFAST [facility] Pravastatin 80mg*Pom 0 each 12/22/20 21:00 * PO BEDTIME [facility] Polyethylene Glycol 17 gm 12/22/20 15:38 Polyethylene Glycol 3350 Powder 17 Gm Packet PO DAILY PRN Constipation Prednisone 5 mg 12/22/20 17:00 Prednisone 5 Mg Tab*Pom* PO BIDMEALS DON[facility] Senna/Docusate Sodium 2 tab 12/22/20 21:00 Docusate Sodium/Sennosides 50-8.6 Mg Tab PO BEDTIME [facility] Sodium Chloride 10 ml 12/22/20 15:38 Sodium Chloride 0.9% 10 Ml Syringe FLUSH ASDIRECTED PRN Keep Vein Open Discontinued Medications Generic Name Dose Route Start Last Admin Trade Name Freq PRN Reason Stop Dose Admin Acetaminophen 1,000 mg 12/22/20 14:44 12/22/20 15:02 Acetaminophen 500 Mg Tab PO 12/22/20 14:45 Not Given ONETIME ONE Lactated Ringer's 1,000 mls @ 999 mls/hr 12/22/20 12:35 12/22/20 13:06 Ringers, Lactated IV 12/22/20 13:35 999 mls/hr BOLUS ONE Administration Oxycodone HCl 5 mg 12/22/20 15:01 12/22/20 15:06 Oxycodone 5 Mg Tab PO 12/22/20 15:02 5 mg ONETIME ONE Administration Sodium Chloride 10 ml 12/22/20 11:32 12/22/20 12:10 Sodium Chloride 0.9% 10 Ml Syringe FLUSH 10 ml ASDIRECTED PRN Administration Keep Vein Open Departure - Departure Time of Disposition: 17:55 Disposition: Admitted As Inpatient 66 Condition: Fair Clinical Impression: Pancytopenia, Near syncope - Discharge Information Sepsis Event Note (ED) - Evaluation Sepsis Screening Result: No Definite Risk - Focused Exam Vital Signs: Vital Signs Temp Pulse Resp BP Pulse Ox 12/22/20 14:10 89 12 105/47 L 100 12/22/20 13:10 87 105/50 L 100 12/22/20 12:40 87 18 99/50 L 100 12/22/20 12:10 90 12 108/53 L 100 12/22/20 11:47 36.3 C 97 15 93/45 L 100 12/22/20 11:42 36.3 C 97 15 93/45 L 100
[2020-12-22] MEDS ORDERED: Lactated Ringers 1,000 ML IV ONE (12:35)
--- NOTE | 2020-12-22 14:31 | PCM.HP.2 ---
H&P History of Present Illness - General Date of Service: 12/22/20 Admit Problem/Dx: Admission Diagnosis/Problem Admission Diagnosis/Problem Anemia Source of Information: Patient, Family, Provider, RN Notes Reviewed History Limitations: Reports: No Limitations - History of Present Illness Initial Comments - Free Text/Narative: Mr. Curtis is a 65-year-old gentleman who was admitted to observation status through the emergency department with weakness and lightheadedness secondary to severe anemia. He has a known history of metastatic prostate cancer and has received previous chemotherapy. By his history since chemotherapy he has experienced pancytopenia. He has had more difficulty with the anemia and has required previous blood transfusions. He also recently received a course of radiation therapy to his chest and back. Over the past few weeks he has become progressively more weak and short of breath with lightheadedness. This has been much worse over the past few days and he experienced 2 episodes of near syncope today. Because of symptoms he presented to the emergency department and is noted to be pancytopenic. Hemoglobin was very low at 5.4. - Related Data Allergies/Adverse Reactions: Allergies Allergy/AdvReac Type Severity Reaction Status Date / Time albuterol [From ProAir HFA] Allergy Cannot Verified 12/22/20 11:48 Remember leuprolide [From Eligard] Allergy Other Verified 12/22/20 11:48 Home Medications: Home Meds Lisinopril [Prinivil] 20 mg PO DAILY 07/12/16 [History] Metoprolol Succinate [Toprol XL] 75 mg PO DAILY 07/12/16 [History] Multivitamin [Multi-Day Vitamins] 1 tab PO DAILY 07/12/16 [History] Pravastatin Sodium [Pravachol] 80 mg PO BEDTIME 07/12/16 [History] Sennosides/Docusate Sodium [Senokot-S Tablet] 2 each PO BEDTIME 07/12/16 [History] Pantoprazole Sodium [Protonix] 20 mg PO DAILY 01/19/19 [History] predniSONE [Prednisone] 5 mg PO BID 01/19/19 [History] Gabapentin [Neurontin] 300 mg PO BID 10/23/20 [History] diazePAM [Valium] 10 mg PO ASDIRECTED PRN 10/23/20 [History] Aspirin [Halfprin] 81 mg PO DAILY 11/15/20 [History] Cholecalciferol (Vitamin D3) [Vitamin D3] 2,000 unit PO DAILY 11/16/20 [History] Lynparza 150 mg PO BID 12/22/20 [History] oxyCODONE HCl/Acetaminophen [Oxycodone-Acetaminophen 5-325] 1 tab PO Q4HR PRN 12/22/20 [History] Past Medical History Cardiovascular History: Reports: Heart Murmur, High Cholesterol, Hypertension, Other (See Below) Other Cardiovascular History: ductus Gastrointestinal History: Reports: GERD Genitourinary History: Reports: Prostate Disorder Musculoskeletal History: Reports: Fracture Other Musculoskeletal History: l arm, l hip Neurological History: Reports: Migraines Oncologic (Cancer) History: Reports: Bone, Metastatic, Prostate - Infectious Disease History Infectious Disease History: Reports: C-Difficile - Past Surgical History GI Surgical History: Reports: Colonoscopy, Polypectomy Male Surgical History: Reports: Prostatectomy Endocrine Surgical History: Reports: Other (See Below) Other Endocrine Surgeries/Procedures: pituitary enlargement. Oncologic Surgical History: Reports: Mastectomy Social & Family History - Tobacco Use Tobacco Use Status *Q: Never Tobacco User - Caffeine Use Caffeine Use: Reports: None - Recreational Drug Use Recreational Drug Use: No H&P Review of Systems - Review of Systems: Review Of Systems: See Below General: Reports: Weakness, Fatigue, Decreased Appetite, Weight Loss HEENT: Reports: No Symptoms Pulmonary: Reports: Shortness of Breath. Denies: Wheezing, Pleuritic Chest Pain, Cough, Sputum, Hemoptysis Cardiovascular: Reports: Dyspnea on Exertion, Lightheadedness. Denies: Chest Pain, Palpitations, Orthopnea, PND, Edema, Syncope Gastrointestinal: Reports: No Symptoms. Denies: Hematemesis, Hematochezia, M tricia Genitourinary: Reports: No Symptoms. Denies: Hematuria Musculoskeletal: Reports: No Symptoms Skin: Reports: No Symptoms Psychiatric: Reports: No Symptoms Neurological: Reports: No Symptoms Hematologic/Lymphatic: Reports: No Symptoms Immunologic: Reports: No Symptoms Exam - Exam Exam: See Below - Vital Signs Vital Signs: Last Vital Signs Temp 97.3 F 12/22/20 11:47 Pulse 87 12/22/20 13:10 Resp 18 12/22/20 12:40 BP 105/50 L 12/22/20 13:10 Pulse Ox 100 12/22/20 13:10 Weight: 200 lb - Exam Quality Assessment: DVT Prophylaxis General: Alert, Oriented, Cooperative, Moderate Distress HEENT: Conjunctiva Clear, Hearing Intact, Mucosa Moist & [place], Normal Nasal Septum, Posterior Pharynx Clear, Pupils Equal Neck: Supple, Trachea Midline, +2 Carotid Pulse wo Bruit Lungs: Clear to Auscultation, Normal Respiratory Effort Cardiovascular: Regular Rate, Regular Rhythm, Normal S1, Normal S2. No: Sys tolic Murmur, Diastolic Murmur GI/Abdominal Exam: Soft, Non-Tender, No Organomegaly, No Distention Back Exam: Normal Inspection, Full Range of Motion Extremities: Non-Tender, No Pedal Edema Skin: Warm, Dry, Intact Neurological: Cranial Nerves Intact, Strength Equal Bilateral, Normal Speech, Normal Tone, Sensation Intact. No: Focal Deficit Neuro Extensive - Mental Status: Alert, Oriented x3, Normal Mood/Affect, Normal Cognition, Memory Intact - Patient Data Lab Results Last 24 hrs: Laboratory Results - last 24 hr 12/22/20 12/22/20 12/22/20 Range/Units 11:44 11:44 12:02 WBC 2.5 L (4.5-11.0) K/uL RBC 1.65 L (4.30-5.90) M/uL Hgb 5.2 L* D (12.0-15.0) g/dL Hct 16.8 L (40.0-54.0) % MCV 102 H (80-98) fL MCH 32 H (27-31) pg MCHC 31 L (32-36) % Plt Count 56 L (150-400) K/uL Neut # (Auto) Sodium 138 L (140-148) mmol/L Potassium 4.1 (3.6-5.2) mmol/L Chloride 100 (100-108) mmol/L Carbon Dioxide 25 (21-32) mmol/L Anion Gap 17.1 H (5.0-14.0) mmol/L BUN 27 H (7-18) mg/dL Creatinine 1.5 H (0.8-1.3) mg/dL Est Cr Clr Drug Dosing 55.49 mL/min Estimated GFR (MDRD) 47 L (>60) Glucose 114 H (74-106) mg/dL Calcium 8.1 L (8.5-10.1) mg/dL Troponin I < 0.017 (0.000-0.056) ng/mL SARS CoV-2 RNA Rapid BELIA Negative 12/22/20 Range/Units 12:04 WBC 2.5 L (4.5-11.0) K/uL RBC (4.30-5.90) M/uL Hgb (12.0-15.0) g/dL Hct (40.0-54.0) % MCV (80-98) fL MCH (27-31) pg MCHC (32-36) % Plt Count (150-400) K/uL Neut # (Auto) 1.91 Sodium (140-148) mmol/L Potassium (3.6-5.2) mmol/L Chloride (100-108) mmol/L Carbon Dioxide (21-32) mmol/L Anion Gap (5.0-14.0) mmol/L BUN (7-18) mg/dL Creatinine (0.8-1.3) mg/dL Est Cr Clr Drug Dosing mL/min Estimated GFR (MDRD) (>60) Glucose (74-106) mg/dL Calcium (8.5-10.1) mg/dL Troponin I (0.000-0.056) ng/mL SARS CoV-2 RNA Rapid BELIA Result Diagrams: 12/22/20 12:04 12/22/20 11:44 Sepsis Event Note - Evaluation Sepsis Screening Result: No Definite Risk - Focused Exam Vital Signs: Vital Signs Temp Pulse Resp BP Pulse Ox 12/22/20 13:10 87 105/50 L 100 12/22/20 12:40 87 18 99/50 L 100 12/22/20 12:10 90 12 108/53 L 100 12/22/20 11:47 97.3 F 97 15 93/45 L 100 12/22/20 11:42 97.3 F 97 15 93/45 L 100 *Q Meaningful Use (ADM) - VTE Risk Assess *Q Each Risk Factor Represents 1 Point: Obesity ( BMI > 25 kg/m2) Total Score 1 Point Risk Factors: 1 Each Risk Factor Represents 2 Points: Age 60 - 74 Years, Malignancy (present or previous) Total Score 2 Point Risk Factors: 4 Each Risk Factor Represents 3 Points: None Total Score 3 Point Risk Factors: 0 Each Risk Factor Represents 5 Points: None Total Score 5 Point Risk Factors: 0 Venous Thromboembolism Risk Factor Score *Q: 5 Problem List Initiated/Reviewed/Updated: Yes Orders Last 24hrs: Active Orders 24 hr Category Date Time Status Patient Status Manage Transfer [TRANSFER] Routine ADT 12/22/20 14:23 Ordered Cardiac Monitoring [RC] .As Directed Care 12/22/20 11:32 Active Oxygen Therapy Adult [Oxygen Therapy, ED] [RC] Care 12/22/20 11:50 Active ASDIRECTED RED BLOOD CELLS LP [BBK] Stat Lab 12/22/20 14:21 Ordered TYPE AND SCREEN [BBK] Stat Lab 12/22/20 14:21 Ordered UA W/MICROSCOPIC [URIN] Stat Lab 12/22/20 11:32 Ordered Sodium Chloride 0.9% [Saline Flush] Med 12/22/20 11:32 Active 10 ml FLUSH ASDIRECTED PRN Saline Lock Insert [OM.PC] Routine Oth 12/22/20 11:32 Ordered Transfuse Red Blood Cells [COMM] Stat Oth 12/22/20 14:21 Ordered Resuscitation Status Routine Resus Stat 12/22/20 14:27 Ordered Medication Orders Sodium Chloride (Sodium Chloride 0.9% 10 Ml Syringe) 10 ml FLUSH ASDIRECTED PRN PRN Reason: Keep Vein Open Last Admin: 12/22/20 12:10 Dose: 10 ml Documented by: TEODORA Assessment/Plan Comment:: ASSESSMENT AND PLAN SEVERE ANEMIA-history of pancytopenia associated with previous chemotherapy and recent radiation therapy. Recent symptoms of weakness, shortness of breath, lightheadedness. Hemoglobin today found to be very low at 5.4. No evidence of recent active bleeding. -Transfuse 2 units of red blood cells -Follow-up hemoglobin tonight and in a.m. PANCYTOPENIA-in addition to severe anemia is noted to have decreased platelet and white blood cell count -Follow-up with oncology METASTATIC PROSTATE CARCINOMA MAINTENANCE ISSUES -DVT prophylaxis; SCUDs, hold on anticoagulation because of thrombocytopenia -GI prophylaxis; not indicated -Young catheter; not indicated -Nutrition; regular diet -Nicotine dependence; not required CODE STATUS-FULL CODE ADMISSION STATUS-this patient will be admitted to observation status, expect no more than a one night hospital stay for evaluation and management of problems as outlined above. DISPOSITION-anticipate discharge to home after the hospital stay. PRIMARY CARE PROVIDER-Dr. Cardoza - Mortality Measure Prognosis:: Good
[2020-12-22] MEDS: Acetaminophen 500 MG Tab PO ONE ×2 (14:55→15:02)
[2020-12-22] MEDS ORDERED: oxyCODONE 5 MG Tab PO ONE (15:01)
[2020-12-22] MEDS ORDERED: Ondansetron 4 MG/2 ML SDV IV PRN (15:38)
[2020-12-22] MEDS ORDERED: Polyethylene Glycol 3350 Powder 17 GM Packet PO PRN (15:38)
[2020-12-22] MEDS ORDERED: oxyCODONE 5 MG Tab PO PRN (17:14)
[2020-12-22] MEDS: PREDNISONE 5 MG PO SCH (19:03)
[2020-12-22] MEDS: Gabapentin 300 MG Cap*POM PO SCH (20:17)
[2020-12-22] MEDS: PRAVASTATIN 80 MG PO SCH (20:18)
[2020-12-22] MEDS: Acetaminophen/oxyCODONE 325-5 MG Tab PO PRN (20:19)
[2020-12-22] MEDS ORDERED: LYNPARZA 150 MG PO SCH (21:00)
[2020-12-23] MEDS: Acetaminophen 325 MG Tab PO PRN (01:29)
[2020-12-23] MEDS ORDERED: Sodium Chloride 0.9% 500 ML IV ONE (01:40)
[2020-12-23] MEDS: Pantoprazole 40 MG Tab.CR PO SCH (07:49)
[2020-12-23] MEDS: PREDNISONE 5 MG PO SCH ×2 (07:50→18:07)
[2020-12-23] MEDS: Gabapentin 300 MG Cap*POM PO SCH ×2 (08:02→21:11)
[2020-12-23] MEDS: Aspirin 81 MG Tab.EC PO SCH (08:03)
[2020-12-23] MEDS ORDERED: Metoprolol Succinate 25 MG Tab.ER PO SCH (09:00)
[2020-12-23] MEDS ORDERED: Lisinopril 20 MG Tab*POM PO SCH (09:00)
--- NOTE | 2020-12-23 10:19 | PCM.PN ---
- General Info Date of Service: 12/23/20 Subjective Update: Mr. Curtis required transfusion of 4 units of red blood cells to increase hemoglobin to 7.5. There has been no evidence of active bleeding. He did experience some hypotension during the night but that has resolved following a fluid bolus. Functional Status: Reports: Tolerating Diet, Urinating - Review of Systems General: Reports: Weakness, Fatigue. Denies: Fever, Chills Pulmonary: Reports: No Symptoms Cardiovascular: Reports: No Symptoms Gastrointestinal: Reports: No Symptoms Genitourinary: Reports: No Symptoms - Patient Data Vitals - Most Recent: Last Vital Signs Temp 98.6 F 12/23/20 07:54 Pulse 79 12/23/20 08:04 Resp 16 12/23/20 07:54 BP 107/55 L 12/23/20 08:04 Pulse Ox 96 12/23/20 07:54 Weight - Most Recent: 200 lb I&O - Last 24 Hours: Intake & Output 12/22/20 12/23/20 12/23/20 22:59 06:59 14:59 Intake Total 1184 268 Output Total 600 Balance 584 268 Lab Results Last 24 Hours: Laboratory Results - last 24 hr 12/22/20 12/22/20 12/22/20 Range/Units 11:44 11:44 12:02 WBC 2.5 L (4.5-11.0) K/uL RBC 1.65 L (4.30-5.90) M/uL Hgb 5.2 L* D (12.0-15.0) g/dL Hct 16.8 L (40.0-54.0) % MCV 102 H (80-98) fL MCH 32 H (27-31) pg MCHC 31 L (32-36) % Plt Count 56 L (150-400) K/uL Neut # (Auto) Add Manual Diff Neutrophils % (Manual) (36-66) % Band Neutrophils % (5-11) % Lymphocytes % (Manual) (24-44) % Monocytes % (Manual) (2-6) % Macrocytosis Tear Drop Cells Sodium 138 L (140-148) mmol/L Potassium 4.1 (3.6-5.2) mmol/L Chloride 100 (100-108) mmol/L Carbon Dioxide 25 (21-32) mmol/L Anion Gap 17.1 H (5.0-14.0) mmol/L BUN 27 H (7-18) mg/dL Creatinine 1.5 H (0.8-1.3) mg/dL Est Cr Clr Drug Dosing 55.49 mL/min Estimated GFR (MDRD) 47 L (>60) Glucose 114 H (74-106) mg/dL Calcium 8.1 L (8.5-10.1) mg/dL Troponin I < 0.017 (0.000-0.056) ng/mL SARS CoV-2 RNA Rapid BELIA Negative Blood Type Gel Antibody Screen Crossmatch 12/22/20 12/22/20 12/22/20 Range/Units 12:04 14:35 21:56 WBC 2.5 L (4.5-11.0) K/uL RBC (4.30-5.90) M/uL Hgb 5.8 L* (12.0-15.0) g/dL Hct (40.0-54.0) % MCV (80-98) fL MCH (27-31) pg MCHC (32-36) % Plt Count (150-400) K/uL Neut # (Auto) 1.91 Add Manual Diff Neutrophils % (Manual) (36-66) % Band Neutrophils % (5-11) % Lymphocytes % (Manual) (24-44) % Monocytes % (Manual) (2-6) % Macrocytosis Tear Drop Cells Sodium (140-148) mmol/L Potassium (3.6-5.2) mmol/L Chloride (100-108) mmol/L Carbon Dioxide (21-32) mmol/L Anion Gap (5.0-14.0) mmol/L BUN (7-18) mg/dL Creatinine (0.8-1.3) mg/dL Est Cr Clr Drug Dosing mL/min Estimated GFR (MDRD) (>60) Glucose (74-106) mg/dL Calcium (8.5-10.1) mg/dL Troponin I (0.000-0.056) ng/mL SARS CoV-2 RNA Rapid BELIA Blood Type O POSITIVE Gel Antibody Screen Negative Crossmatch See Detail 12/23/20 12/23/20 Range/Units 06:58 06:58 WBC 2.4 L (4.5-11.0) K/uL RBC 2.47 L (4.30-5.90) M/uL Hgb 7.5 L (12.0-15.0) g/dL Hct 23.4 L (40.0-54.0) % MCV 95 (80-98) fL MCH 30 (27-31) pg MCHC 32 (32-36) % Plt Count 42 L (150-400) K/uL Neut # (Auto) Add Manual Diff Yes Neutrophils % (Manual) 64 (36-66) % Band Neutrophils % 17 H (5-11) % Lymphocytes % (Manual) 10 L (24-44) % Monocytes % (Manual) 9 H (2-6) % Macrocytosis Moderate H Tear Drop Cells Few Sodium 136 L (140-148) mmol/L Potassium 4.8 (3.6-5.2) mmol/L Chloride 102 (100-108) mmol/L Carbon Dioxide 25 (21-32) mmol/L Anion Gap 13.8 (5.0-14.0) mmol/L BUN 15 (7-18) mg/dL Creatinine 1.0 (0.8-1.3) mg/dL Est Cr Clr Drug Dosing 83.23 mL/min Estimated GFR (MDRD) > 60 (>60) Glucose 103 (74-106) mg/dL Calcium 7.2 L (8.5-10.1) mg/dL Troponin I (0.000-0.056) ng/mL SARS CoV-2 RNA Rapid BELIA Blood Type Gel Antibody Screen Crossmatch Med Orders - Current: Current Medications Acetaminophen (Acetaminophen 325 Mg Tab) 650 mg PO Q4H PRN PRN Reason: Pain (Mild 1-3)/fever Last Admin: 12/23/20 01:29 Dose: 650 mg Documented by: Aspirin (Aspirin 81 Mg Tab.Ec) 81 mg PO DAILY [facility] Last Admin: 12/23/20 08:03 Dose: 81 mg Documented by: Gabapentin (Gabapentin 300 Mg Cap*Pom*) 300 mg PO BID [facility] Last Admin: 12/23/20 08:02 Dose: 300 mg Documented by: Lisinopril (Lisinopril 20 Mg Tab*Pom*) 20 mg PO DAILY [facility] Last Admin: 12/23/20 08:01 Dose: 20 mg Documented by: Metoprolol Succinate (Metoprolol Succinate 25 Mg Tab.Er) 75 mg PO DAILY [facility] Last Admin: 12/23/20 08:04 Dose: 75 mg Documented by: Non-Formulary Medication (Lynparza) 150 mg PO BID [facility] Ondansetron HCl (Ondansetron 4 Mg/2 Ml Sdv) 4 mg IV Q4H PRN PRN Reason: Nausea/Vomiting Oxycodone HCl (Oxycodone 5 Mg Tab) 5 mg PO Q4H PRN PRN Reason: Pain (moderate 4-6) Last Admin: 12/23/20 05:12 Dose: 5 mg Documented by: Oxycodone/Acetaminophen (Acetaminophen/Oxycodone 325-5 Mg Tab) 1 tab PO Q4H PRN PRN Reason: Pain Last Admin: 12/22/20 20:19 Dose: 1 tab Documented by: Pantoprazole Sodium (Pantoprazole 40 Mg Tab.Cr) 40 mg PO ACBREAKFAST [facility] Last Admin: 12/23/20 07:49 Dose: 40 mg Documented by: Pravastatin 80mg*Pom (*) 0 each PO BEDTIME [facility] Last Admin: 12/22/20 20:18 Dose: 1 each Documented by: Polyethylene Glycol (Polyethylene Glycol 3350 Powder 17 Gm Packet) 17 gm PO DAILY PRN PRN Reason: Constipation Prednisone (Prednisone 5 Mg Tab*Pom*) 5 mg PO BIDMEALS [facility] Last Admin: 12/23/20 07:50 Dose: 5 mg Documented by: Senna/Docusate Sodium (Docusate Sodium/Sennosides 50-8.6 Mg Tab) 2 tab PO BEDTIME [facility] Last Admin: 12/22/20 20:18 Dose: 2 tab Documented by: Sodium Chloride (Sodium Chloride 0.9% 10 Ml Syringe) 10 ml FLUSH ASDIRECTED PRN PRN Reason: Keep Vein Open Discontinued Medications Acetaminophen (Acetaminophen 500 Mg Tab) 1,000 mg PO ONETIME ONE Stop: 12/22/20 14:45 Last Admin: 12/22/20 15:02 Dose: Not Given Documented by: Lactated Ringer's (Ringers, Lactated) 1,000 mls @ 999 mls/hr IV BOLUS ONE Stop: 12/22/20 13:35 Last Admin: 12/22/20 13:06 Dose: 999 mls/hr Documented by: Sodium Chloride (Normal Saline) 500 mls @ 999 mls/hr IV .BOLUS ONE Stop: 12/23/20 02:10 Last Admin: 12/23/20 01:46 Dose: 999 mls/hr Documented by: Oxycodone HCl (Oxycodone 5 Mg Tab) 5 mg PO ONETIME ONE Stop: 12/22/20 15:02 Last Admin: 12/22/20 15:06 Dose: 5 mg Documented by: Sodium Chloride (Sodium Chloride 0.9% 10 Ml Syringe) 10 ml FLUSH ASDIRECTED PRN PRN Reason: Keep Vein Open Last Admin: 12/22/20 12:10 Dose: 10 ml Documented by: - Exam Quality Assessment: DVT Prophylaxis General: Alert, Oriented, Cooperative, Mild Distress Lungs: Clear to Auscultation, Normal Respiratory Effort Cardiovascular: Regular Rate, Regular Rhythm, No Murmurs GI/Abdominal Exam: Soft, Non-Tender, No Organomegaly, No Distention Extremities: Non-Tender, No Pedal Edema - Patient Data Lab Results Last 24 hrs: Laboratory Results - last 24 hr 12/22/20 12/22/20 12/22/20 Range/Units 11:44 11:44 12:02 WBC 2.5 L (4.5-11.0) K/uL RBC 1.65 L (4.30-5.90) M/uL Hgb 5.2 L* D (12.0-15.0) g/dL Hct 16.8 L (40.0-54.0) % MCV 102 H (80-98) fL MCH 32 H (27-31) pg MCHC 31 L (32-36) % Plt Count 56 L (150-400) K/uL Neut # (Auto) Add Manual Diff Neutrophils % (Manual) (36-66) % Band Neutrophils % (5-11) % Lymphocytes % (Manual) (24-44) % Monocytes % (Manual) (2-6) % Macrocytosis Tear Drop Cells Sodium 138 L (140-148) mmol/L Potassium 4.1 (3.6-5.2) mmol/L Chloride 100 (100-108) mmol/L Carbon Dioxide 25 (21-32) mmol/L Anion Gap 17.1 H (5.0-14.0) mmol/L BUN 27 H (7-18) mg/dL Creatinine 1.5 H (0.8-1.3) mg/dL Est Cr Clr Drug Dosing 55.49 mL/min Estimated GFR (MDRD) 47 L (>60) Glucose 114 H (74-106) mg/dL Calcium 8.1 L (8.5-10.1) mg/dL Troponin I < 0.017 (0.000-0.056) ng/mL SARS CoV-2 RNA Rapid [facility] Negative Blood Type Gel Antibody Screen Crossmatch 12/22/20 12/22/20 12/22/20 Range/Units 12:04 14:35 21:56 WBC 2.5 L (4.5-11.0) K/uL RBC (4.30-5.90) M/uL Hgb 5.8 L* (12.0-15.0) g/dL Hct (40.0-54.0) % MCV (80-98) fL MCH (27-31) pg MCHC (32-36) % Plt Count (150-400) K/uL Neut # (Auto) 1.91 Add Manual Diff Neutrophils % (Manual) (36-66) % Band Neutrophils % (5-11) % Lymphocytes % (Manual) (24-44) % Monocytes % (Manual) (2-6) % Macrocytosis Tear Drop Cells Sodium (140-148) mmol/L Potassium (3.6-5.2) mmol/L Chloride (100-108) mmol/L Carbon Dioxide (21-32) mmol/L Anion Gap (5.0-14.0) mmol/L BUN (7-18) mg/dL Creatinine (0.8-1.3) mg/dL Est Cr Clr Drug Dosing mL/min Estimated GFR (MDRD) (>60) Glucose (74-106) mg/dL Calcium (8.5-10.1) mg/dL Troponin I (0.000-0.056) ng/mL SARS CoV-2 RNA Rapid [facility] Blood Type O POSITIVE Gel Antibody Screen Negative Crossmatch See Detail 12/23/20 12/23/20 Range/Units 06:58 06:58 WBC 2.4 L (4.5-11.0) K/uL RBC 2.47 L (4.30-5.90) M/uL Hgb 7.5 L (12.0-15.0) g/dL Hct 23.4 L (40.0-54.0) % MCV 95 (80-98) fL MCH 30 (27-31) pg MCHC 32 (32-36) % Plt Count 42 L (150-400) K/uL Neut # (Auto) Add Manual Diff Yes Neutrophils % (Manual) 64 (36-66) % Band Neutrophils % 17 H (5-11) % Lymphocytes % (Manual) 10 L (24-44) % Monocytes % (Manual) 9 H (2-6) % Macrocytosis Moderate H Tear Drop Cells Few Sodium 136 L (140-148) mmol/L Potassium 4.8 (3.6-5.2) mmol/L Chloride 102 (100-108) mmol/L Carbon Dioxide 25 (21-32) mmol/L Anion Gap 13.8 (5.0-14.0) mmol/L BUN 15 (7-18) mg/dL Creatinine 1.0 (0.8-1.3) mg/dL Est Cr Clr Drug Dosing 83.23 mL/min Estimated GFR (MDRD) > 60 (>60) Glucose 103 (74-106) mg/dL Calcium 7.2 L (8.5-10.1) mg/dL Troponin I (0.000-0.056) ng/mL SARS CoV-2 RNA Rapid BELIA Blood Type Gel Antibody Screen Crossmatch Result Diagrams: 12/23/20 06:58 12/23/20 06:58 Sepsis Event Note - Evaluation Sepsis Screening Result: No Definite Risk - Focused Exam Vital Signs: Vital Signs Temp Temp Pulse Pulse Resp BP BP 12/23/20 08:04 79 107/55 L 12/23/20 08:01 107/55 L 12/23/20 07:54 98.6 F 79 16 107/55 L 12/23/20 05:07 100.2 F 88 16 103/50 L 12/23/20 05:00 100.2 F 80 16 98/49 L 12/23/20 04:30 82 16 98/47 L 12/23/20 04:00 100.2 F 92 16 95/47 L 12/23/20 03:45 94 16 100/48 L 12/23/20 03:39 100.4 F 16 103/50 L 12/23/20 03:23 100.8 F H 96 16 98/49 L 12/23/20 03:08 100.6 F 98 16 124/52 L 12/23/20 02:30 84 16 83/40 L 12/23/20 02:15 94/50 L 12/23/20 02:00 100.1 F 94 80/36 L 12/23/20 01:59 101 F H 12/23/20 01:40 100.2 F 89 16 87/44 L 12/23/20 01:30 74/35 L 12/23/20 01:29 100.5 F 12/23/20 01:25 100.5 F 91 16 105/47 L 12/23/20 01:06 99.6 F 98 116/49 L Pulse Ox 12/23/20 08:04 12/23/20 08:01 12/23/20 07:54 96 12/23/20 05:07 12/23/20 05:00 12/23/20 04:30 12/23/20 04:00 12/23/20 03:45 12/23/20 03:39 12/23/20 03:23 12/23/20 03:08 12/23/20 02:30 12/23/20 02:15 12/23/20 02:00 12/23/20 01:59 12/23/20 01:40 12/23/20 01:30 12/23/20 01:29 12/23/20 01:25 12/23/20 01:06 - Problem List Review Problem List Initiated/Reviewed/Updated: Yes - My Orders Last 24 Hours: My Active Orders 12/22/20 Lunch Regular Diet [DIET] 12/22/20 14:27 Resuscitation Status Routine 12/22/20 15:38 Acetaminophen [TylenoL] 650 mg PO Q4H PRN Acetaminophen/oxyCODONE [Percocet 325-5 MG] 1 tab PO Q4H PRN Ondansetron [Zofran] 4 mg IV Q4H PRN Sodium Chloride 0.9% [Saline Flush] 10 ml FLUSH ASDIRECTED PRN polyethylene glycoL 3350 [MiraLAX] 17 gm PO DAILY PRN 12/22/20 15:38 Patient Status [ADT] Routine Ambulate [RC] QID Antiembolic Devices [RC] .Routine Height and Weight [RC] DAILY Intake and Output [RC] QSHIFT Notify Provider Vital Signs [RC] ASDIRECTED Oxygen Therapy [RC] PRN Up With Assistance [RC] ASDIRECTED Up to Chair [RC] QID VTE/DVT Education [RC] Per Unit Routine Vital Signs [RC] Q4H Saline Lock Insert [OM.PC] Routine Sequential Compression Device [OM.PC] Per Unit Routine VTE Pharmacological Contraindications [AST] Per Unit Routine 12/22/20 17:00 predniSONE 5 mg PO BIDMEALS 12/22/20 17:14 oxyCODONE 5 mg PO Q4H PRN 12/22/20 21:00 Docusate Sodium/Sennosides [Senna Plus] 2 tab PO BEDTIME Gabapentin [Neurontin] 300 mg PO BID Lynparza 150 mg PO BID Patient's Own Medication [Ptom] 0 each PO BEDTIME 12/22/20 22:13 Transfuse Red Blood Cells [COMM] Routine 12/23/20 07:30 Pantoprazole [ProTONIX] 40 mg PO ACBREAKFAST 12/23/20 09:00 Aspirin [Halfprin] 81 mg PO DAILY Metoprolol Succinate [Toprol XL] 75 mg PO DAILY lisinopriL [Prinivil] 20 mg PO DAILY 12/23/20 10:15 Hemoccult [OCCULT BLOOD DIAGNOSTIC] [OP] Urgent 12/23/20 13:00 HGB [HEMOGLOBIN] [HEME] Stat 12/23/20 21:00 HGB [HEMOGLOBIN] [HEME] Stat 12/24/20 05:00 CBC WITH AUTO DIFF [HEME] Timed - Plan Plan:: ASSESSMENT AND PLAN SEVERE ANEMIA-history of pancytopenia associated with previous chemotherapy and recent radiation therapy. Recent symptoms of weakness, shortness of breath, lightheadedness. Hemoglobin today 7.5, after transfusion of 4 units of red blood cells. Still no evidence of active bleeding. -Hemoccult stool -Serial hemoglobin levels today and in a.m. PANCYTOPENIA-in addition to severe anemia is noted to have decreased platelet and white blood cell count -Follow-up with oncology METASTATIC PROSTATE CARCINOMA MAINTENANCE ISSUES -DVT prophylaxis; SCUDs, hold on anticoagulation because of thrombocytopenia -GI prophylaxis; not indicated -Young catheter; not indicated -Nutrition; regular diet -Nicotine dependence; not required CODE STATUS-FULL CODE ADMISSION STATUS-this patient will be admitted to observation status, expect no more than a one night hospital stay for evaluation and management of problems as outlined above. DISPOSITION-anticipate discharge to home after the hospital stay. PRIMARY CARE PROVIDER-Dr. Cardoza
[2020-12-23] MEDS: Acetaminophen/oxyCODONE 325-5 MG Tab PO PRN (15:49)
[2020-12-23] MEDS: PRAVASTATIN 80 MG PO SCH (21:11)
[2020-12-24] MEDS: Acetaminophen 325 MG Tab PO PRN (01:32)
[2020-12-24 08:24] VITALS: BP 106/36; PULSE 78
[2020-12-24] MEDS: PREDNISONE 5 MG PO SCH (08:26)
[2020-12-24] MEDS: Pantoprazole 40 MG Tab.CR PO SCH (08:26)
[2020-12-24] MEDS: Aspirin 81 MG Tab.EC PO SCH (08:27)
[2020-12-24] MEDS: Gabapentin 300 MG Cap*POM PO SCH (08:28)
[2020-12-24] MEDS ORDERED: Lisinopril 20 MG **PTOM PO SCH (09:00)
[2020-12-24] MEDS ORDERED: Metoprolol Succinate 50 MG Tab.ER PO SCH (09:00)
--- NOTE | 2020-12-24 10:45 | PCM.DCSUM1 ---
Discharge Summary - Hospital Course Brief History: Mr. Curtis is a 65 year old gentleman who was admitted to observation status through emergency department with progressive weakness, lightheadedness, and dyspnea, secondary to severe anemia . - Discharge Data Discharge Date: 12/24/20 Discharge Disposition: Home, Self-Care 01 Condition: Fair - Referral to Home Health Primary Care Physician: Delroy Cardoza MD - Discharge Diagnosis/Problem(s) (1) Anemia SNOMED Code(s): 128883746 ICD Code: D64.9 - ANEMIA, UNSPECIFIED Status: Acute Current Visit: Yes (2) Pancytopenia SNOMED Code(s): 484790963 ICD Code: D61.818 - OTHER PANCYTOPENIA Status: Acute Current Visit: Yes (3) Near syncope SNOMED Code(s): 695109234 ICD Code: R55 - SYNCOPE AND COLLAPSE Status: Acute Current Visit: Yes - Patient Summary/Data Hospital Course: Mr. Curtis is a 65-year-old gentleman who was admitted to observation status through the emergency department with weakness and lightheadedness secondary to severe anemia. He has a known history of metastatic prostate cancer and has received previous chemotherapy. By his history, since chemotherapy he has had pancytopenia. He has had more difficulty with the anemia and has required previous blood transfusions. He also recently received a course of radiation therapy to his chest and back. Over the past few weeks he has become progressively more weak and short of breath with lightheadedness. This has been much worse over the past few days and he experienced 2 episodes of near syncope. Because of symptoms he presented to the emergency department and is noted to be pancytopenic. Hemoglobin was very low at 5.4. While in the emergency department he did receive IV fluids. He was transfused 2 units of red blood cells and hemoglobin came up to only 5.7 following transfusion. He was transfused 2 more units of red blood cells and hemoglobin was noted to be 7.5. There was concern that he might be experiencing GI bleeding, so he was monitored an additional 24 hours. There was no evidence of active bleeding. Stool was obtained for Hemoccult which was found to be negative. Hemoglobin remained stable during that period of time and at the time of discharge was 7.9. Activity will be as tolerated and he will resume his usual diet. Follow-up appointment will be scheduled with Dr. Cardoza within 1 week and a CBC will be obtained at that time. He is encouraged to see his oncologist for follow-up as soon as possible. - Patient Instructions Diet: Usual Diet as Tolerated Activity: As Tolerated Other/Special Instructions: FU appt with Dr. Cardoza within 1 week, CBC at the time of FU appt. Appt with Oncology FUNMILAYO - Discharge Plan *PRESCRIPTION DRUG MONITORING PROGRAM REVIEWED*: Not Applicable *COPY OF PRESCRIPTION DRUG MONITORING REPORT IN PATIENT NAVDEEP: Not Applicable Prescriptions/Med Rec: lisinopriL [Lisinopril] 10 mg PO DAILY #30 tablet Metoprolol Succinate 50 mg PO DAILY #30 tab.er.24h Home Medications: Home Meds Multivitamin [Multi-Day Vitamins] 1 tab PO DAILY 07/12/16 [History] Pravastatin Sodium [Pravachol] 80 mg PO BEDTIME 07/12/16 [History] Sennosides/Docusate Sodium [Senokot-S Tablet] 2 each PO BEDTIME 07/12/16 [History] Pantoprazole Sodium [Protonix] 20 mg PO DAILY 01/19/19 [History] predniSONE [Prednisone] 5 mg PO BID 01/19/19 [History] Gabapentin [Neurontin] 300 mg PO BID 10/23/20 [History] diazePAM [Valium] 10 mg PO ASDIRECTED PRN 10/23/20 [History] Aspirin [Halfprin] 81 mg PO DAILY 11/15/20 [History] Cholecalciferol (Vitamin D3) [Vitamin D3] 2,000 unit PO DAILY 11/16/20 [History] Lynparza 150 mg PO BID 12/22/20 [History] oxyCODONE HCl/Acetaminophen [Oxycodone-Acetaminophen 5-325] 1 tab PO Q4HR PRN 12/22/20 [History] Metoprolol Succinate 50 mg PO DAILY #30 tab.er.24h 12/24/20 [Rx] lisinopriL [Lisinopril] 10 mg PO DAILY #30 tablet 12/24/20 [Rx] Referrals: Delroy Cardoza MD [Primary Care Provider] - - Discharge Summary/Plan Comment DC Time >30 min.: No Total # of Minutes for Discharge Time: 20 - Patient Data Vitals - Most Recent: Last Vital Signs Temp 99.5 F 12/24/20 01:33 Pulse 78 12/24/20 08:32 Resp 18 12/24/20 01:33 BP 106/36 L 12/24/20 08:32 Pulse Ox 96 12/24/20 08:17 Weight - Most Recent: 201 lb 8 oz Lab Results - Last 24 hrs: Laboratory Results - last 24 hr 12/23/20 12/23/20 12/24/20 Range/Units 13:00 21:07 04:10 WBC 2.3 L (4.5-11.0) K/uL RBC 2.59 L (4.30-5.90) M/uL Hgb 8.3 L 7.4 L 7.9 L (12.0-15.0) g/dL Hct 24.6 L (40.0-54.0) % MCV 95 (80-98) fL MCH 31 (27-31) pg MCHC 32 (32-36) % Plt Count 45 L (150-400) K/uL Add Manual Diff Yes Neutrophils % (Manual) 65 (36-66) % Band Neutrophils % 14 H (5-11) % Lymphocytes % (Manual) 9 L (24-44) % Monocytes % (Manual) 12 H (2-6) % JANAE Results - Last 24 hrs: Microbiology 12/23/20 15:44 Stool Occult Blood (JANAE) - Final Stool / Feces NEGATIVE OCCULT BLOOD REFERENCE RANGE: NEGATIVE Med Orders - Current: Current Medications Acetaminophen (Acetaminophen 325 Mg Tab) 650 mg PO Q4H PRN PRN Reason: Pain (Mild 1-3)/fever Last Admin: 12/24/20 01:32 Dose: 650 mg Documented by: Aspirin (Aspirin 81 Mg Tab.Ec) 81 mg PO DAILY [facility] Last Admin: 12/24/20 08:27 Dose: 81 mg Documented by: Gabapentin (Gabapentin 300 Mg Cap*Pom*) 300 mg PO BID [facility] Last Admin: 12/24/20 08:28 Dose: 300 mg Documented by: Lisinopril (Lisinopril 20 Mg Ptom) 10 mg PO DAILY [facility] Last Admin: 12/24/20 08:29 Dose: 10 mg Documented by: Metoprolol Succinate (Metoprolol Succinate 50 Mg Tab.Er) 50 mg PO DAILY [facility] Last Admin: 12/24/20 08:32 Dose: 50 mg Documented by: Non-Formulary Medication (Lynparza) 150 mg PO BID [facility] Ondansetron HCl (Ondansetron 4 Mg/2 Ml Sdv) 4 mg IV Q4H PRN PRN Reason: Nausea/Vomiting Oxycodone HCl (Oxycodone 5 Mg Tab) 5 mg PO Q4H PRN PRN Reason: Pain (moderate 4-6) Last Admin: 12/23/20 05:12 Dose: 5 mg Documented by: Oxycodone/Acetaminophen (Acetaminophen/Oxycodone 325-5 Mg Tab) 1 tab PO Q4H PRN PRN Reason: Pain Last Admin: 12/23/20 15:49 Dose: 1 tab Documented by: Pantoprazole Sodium (Pantoprazole 40 Mg Tab.Cr) 40 mg PO ACBREAKFAST [facility] Last Admin: 12/24/20 08:26 Dose: 40 mg Documented by: Pravastatin 80mg*Pom (*) 0 each PO BEDTIME [facility] Last Admin: 12/23/20 21:11 Dose: 1 each Documented by: Polyethylene Glycol (Polyethylene Glycol 3350 Powder 17 Gm Packet) 17 gm PO DAILY PRN PRN Reason: Constipation Prednisone (Prednisone 5 Mg Tab*Pom*) 5 mg PO BIDMEALS [facility] Last Admin: 12/24/20 08:26 Dose: 5 mg Documented by: Senna/Docusate Sodium (Docusate Sodium/Sennosides 50-8.6 Mg Tab) 2 tab PO BEDTIME [facility] Last Admin: 12/23/20 21:12 Dose: 2 tab Documented by: Sodium Chloride (Sodium Chloride 0.9% 10 Ml Syringe) 10 ml FLUSH ASDIRECTED PRN PRN Reason: Keep Vein Open Discontinued Medications Acetaminophen (Acetaminophen 500 Mg Tab) 1,000 mg PO ONETIME ONE Stop: 12/22/20 14:45 Last Admin: 12/22/20 15:02 Dose: Not Given Documented by: Lactated Ringer's (Ringers, Lactated) 1,000 mls @ 999 mls/hr IV BOLUS ONE Stop: 12/22/20 13:35 Last Admin: 12/22/20 13:06 Dose: 999 mls/hr Documented by: Sodium Chloride (Normal Saline) 500 mls @ 999 mls/hr IV .BOLUS ONE Stop: 12/23/20 02:10 Last Admin: 12/23/20 01:46 Dose: 999 mls/hr Documented by: Lisinopril (Lisinopril 20 Mg Tab*Pom*) 20 mg PO DAILY [facility] Last Admin: 12/23/20 08:01 Dose: 20 mg Documented by: Metoprolol Succinate (Metoprolol Succinate 25 Mg Tab.Er) 75 mg PO DAILY [facility] Last Admin: 12/23/20 08:04 Dose: 75 mg Documented by: Oxycodone HCl (Oxycodone 5 Mg Tab) 5 mg PO ONETIME ONE Stop: 12/22/20 15:02 Last Admin: 12/22/20 15:06 Dose: 5 mg Documented by: Sodium Chloride (Sodium Chloride 0.9% 10 Ml Syringe) 10 ml FLUSH ASDIRECTED PRN PRN Reason: Keep Vein Open Last Admin: 12/22/20 12:10 Dose: 10 ml Documented by: - Exam General: Reports: Alert, Oriented, Cooperative, No Acute Distress Lungs: Reports: Clear to Auscultation, Normal Respiratory Effort Cardiovascular: Reports: Regular Rate, Regular Rhythm, No Murmurs GI/Abdominal Exam: Soft, Non-Tender, No Organomegaly, No Distention Extremities: Non-Tender, No Pedal Edema *Q Meaningful Use (DIS) - VTE *Q VTE Pharmacological Contraindications *Q: Thrombocytopenia
== END 2020-12-24 12:15 | disposition home or self-care (01) ==
LOC: JP.ED 11:24 → JP.MS 14:23
PROVIDERS: ADMIT Hospitalist; ATTEND Hospitalist
DX: D64.9 Anemia, unspecified (principal); R53.1 Weakness; R42 Dizziness and giddiness; C61 Malignant neoplasm of prostate; D61.818 Other pancytopenia; R55 Syncope and collapse; E78.00 Pure hypercholesterolemia, unspecified; I10 Essential (primary) hypertension; K21.9 Gastro-esophageal reflux disease without esophagitis; G43.909 Migraine, unspecified, not intractable, without status migrainosus; Z98.890 Other specified postprocedural states; Z20.822 Contact with and (suspected) exposure to COVID-19; Z88.8 Allergy status to other drugs, medicaments and biological substances; Z79.899 Other long term (current) drug therapy; Z79.82 Long term (current) use of aspirin
CPT/HCPCS: 36415; 36430; 80048; 82272; 84484; 85018; 85025; 85027; 85048; 86850; 86900; 86901; 86920; 86922; 99285; A9270; G0378; J7040; J7120; J7512; P9016; U0002

== ENCOUNTER 2021-10-08 17:11 | Emergency (ER) | payer MEDICARE, BC ==
[2021-10-08 17:30] VITALS: BP 121/60; PULSE 111
[2021-10-08] MEDS ORDERED: Morphine 2 MG/ML SYRINGE IM ONE (18:02)
[2021-10-08] MEDS ORDERED: cefTRIAXone 1 GM, Lidocaine 1% 2.1 ML IM ONE ×2 (18:06)
== END 2021-10-08 19:04 | disposition home or self-care (01) ==
LOC: JP.ED 17:11
DX: K04.7 Periapical abscess without sinus (principal); E78.00 Pure hypercholesterolemia, unspecified; I10 Essential (primary) hypertension; K21.9 Gastro-esophageal reflux disease without esophagitis; Z88.8 Allergy status to other drugs, medicaments and biological substances; Z79.899 Other long term (current) drug therapy
CPT/HCPCS: 96372; 99282; J0696; J2270

== ENCOUNTER 2021-10-09 07:16 | Emergency (ER) | payer MEDICARE, BC ==
[2021-10-09] MEDS ORDERED: Sodium Chloride 0.9% 10 ML Syringe FLUSH PRN (07:47)
[2021-10-09] MEDS ORDERED: Ampicillin/Sulbactam Na 3 GM in Sodium Chloride 0.9% 50 ML IV ONE (08:05)
[2021-10-09] MEDS ORDERED: Iopamidol 612 MG/ML 100 ML Bottle IV SCH (08:30)
[2021-10-09] MEDS ORDERED: Sodium Chloride 0.9% 50 ML IV SCH (08:30)
[2021-10-09] MEDS ORDERED: Ampicillin/Sulbactam Na 3 GM in Sodium Chloride 0.9% 100 ML IV ONE ×2 (08:40→18:00)
[2021-10-09] MEDS: Sodium Chloride 0.9% 10 ML Syringe FLUSH ONE ×2 (09:08→09:18)
[2021-10-09] MEDS ORDERED: Oxymetazoline 0.05% Nasal Spray 30 ML Bottle NAS ONE (10:18)
[2021-10-09] MEDS ORDERED: Acetaminophen/Codeine 300-30 MG Tab PO ONE (11:55)
[2021-10-09] MEDS ORDERED: Aluminum Hydroxide/Magnesium Hydroxide/Simethicone Susp 30 ML Cup PO ONE (13:38)
[2021-10-09] MEDS ORDERED: Famotidine 20 MG Tab PO ONE (14:01)
[2021-10-09 16:17] VITALS: BP 117/70; PULSE 92
== END 2021-10-09 18:12 | disposition home or self-care (01) ==
LOC: JP.ED 07:16
DX: K12.2 Cellulitis and abscess of mouth (principal); M27.2 Inflammatory conditions of jaws; C61 Malignant neoplasm of prostate; L98.8 Other specified disorders of the skin and subcutaneous tissue; D69.6 Thrombocytopenia, unspecified; E78.00 Pure hypercholesterolemia, unspecified; I10 Essential (primary) hypertension; K21.9 Gastro-esophageal reflux disease without esophagitis; Z79.82 Long term (current) use of aspirin; Z79.899 Other long term (current) drug therapy
CPT/HCPCS: 36415; 36430; 70491; 80048; 85014; 85018; 85025; 86140; 86850; 86900; 86901; 86920; 86922; 87070; 87205; 96374; 96376; 99283; 99284; A9270; J0295; J3490; P9016; Q9967

== ENCOUNTER 2021-10-22 04:37 | Emergency (ER) | payer MEDICARE, BC ==
[2021-10-22 04:49] VITALS: BP 96/57; PULSE 77
[2021-10-22] MEDS ORDERED: Pantoprazole 40 MG Tab.CR PO ONE (06:12)
== END 2021-10-22 07:09 | disposition home or self-care (01) ==
LOC: JP.ED 04:37
DX: R06.02 Shortness of breath (principal); D64.9 Anemia, unspecified; E78.00 Pure hypercholesterolemia, unspecified; I10 Essential (primary) hypertension; K21.9 Gastro-esophageal reflux disease without esophagitis; Z79.899 Other long term (current) drug therapy; Z79.82 Long term (current) use of aspirin; Z20.822 Contact with and (suspected) exposure to COVID-19
CPT/HCPCS: 36415; 80048; 82272; 85025; 99283; 99284; A9270; U0002

== ENCOUNTER 2021-11-08 06:50 | Day surgery (SDC) | payer MEDICARE, BC ==
[2021-11-08] MEDS ORDERED: Sodium Chloride 0.9% 1,000 ML IV SCH (07:45)
[2021-11-08] MEDS ORDERED: Propofol 200 MG/20 ML SDV ONE ×2 (07:59)
[2021-11-08] MEDS ORDERED: Midazolam 1 MG/ML 2 ML SDV ONE (07:59)
[2021-11-08] MEDS ORDERED: fentaNYL 100 MCG/2 ML SDV ONE (07:59)
[2021-11-08 10:52] VITALS: BP 114/41; PULSE 78
== END 2021-11-08 10:45 | disposition home or self-care (01) ==
LOC: JP.SDS 06:50
PROVIDERS: ATTEND Surgery
DX: Z12.11 Encounter for screening for malignant neoplasm of colon (principal); D12.2 Benign neoplasm of ascending colon; D12.3 Benign neoplasm of transverse colon; I12.9 Hypertensive chronic kidney disease with stage 1 through stage 4 chronic kidney disease, or unspecified chronic kidney disease; K21.9 Gastro-esophageal reflux disease without esophagitis; N18.9 Chronic kidney disease, unspecified
CPT/HCPCS: 45380; 45385; 88305; J2250; J2704; J3010; J7030

== ENCOUNTER 2021-11-21 11:09 | Emergency (ER) | payer MEDICARE, BC ==
[2021-11-21] MEDS: Sodium Chloride 0.9% 1,000 ML IV SCH (12:20)
[2021-11-21 13:30] VITALS: BP 107/57; PULSE 96
== END 2021-11-21 13:42 | disposition home or self-care (01) ==
LOC: JP.ED 11:09
DX: R19.7 Diarrhea, unspecified (principal); D69.6 Thrombocytopenia, unspecified; D64.9 Anemia, unspecified; K21.9 Gastro-esophageal reflux disease without esophagitis; I10 Essential (primary) hypertension; Z88.8 Allergy status to other drugs, medicaments and biological substances; Z79.899 Other long term (current) drug therapy; Z79.82 Long term (current) use of aspirin; Z20.822 Contact with and (suspected) exposure to COVID-19
CPT/HCPCS: 36415; 80048; 85025; 96360; 99284; J7030; U0002

== ENCOUNTER 2022-09-06 08:18 | Emergency (ER) | payer MEDICARE, BC ==
[2022-09-06] MEDS ORDERED: Sodium Chloride 0.9% 10 ML Syringe FLUSH PRN ×2 (08:25→08:27)
[2022-09-06 09:02] LABS: PROTHROMBIN TIME 10.4 sec (9.2-10.6); PTT,PARTIAL THROMBOPLSTIN TIME 22.3 sec (21.8-27.3)
[2022-09-06] MEDS ORDERED: diphenhydrAMINE 25 MG Cap PO ONE (10:04)
[2022-09-06] MEDS ORDERED: Acetaminophen 500 MG Tab PO ONE (10:04)
[2022-09-06 15:50] VITALS: BP 94/48; PULSE 93
[2022-09-06 15:50] LABS: HEMATOCRIT 23.2 % (38.4-49.7); HEMOGLOBIN 7.9 g/dL (12.9-16.9)
== END 2022-09-06 17:25 | disposition home or self-care (01) ==
LOC: JP.ED 08:18
DX: D61.9 Aplastic anemia, unspecified (principal); C61 Malignant neoplasm of prostate; C79.51 Secondary malignant neoplasm of bone; I10 Essential (primary) hypertension; K21.9 Gastro-esophageal reflux disease without esophagitis; Z79.899 Other long term (current) drug therapy; Z88.8 Allergy status to other drugs, medicaments and biological substances
CPT/HCPCS: 36415; 36430; 85014; 85018; 85610; 85730; 86850; 86900; 86901; 86920; 86922; 99284; A9270; J3490; P9016

== ENCOUNTER 2022-09-25 09:24 | Emergency (ER) | payer MEDICARE, BC ==
[2022-09-25] MEDS ORDERED: Sodium Chloride 0.9% 10 ML Syringe FLUSH PRN (09:30)
[2022-09-25] MEDS ORDERED: diphenhydrAMINE 50 MG/ML SDV IVPUSH ONE (11:01)
[2022-09-25] MEDS ORDERED: Acetaminophen 500 MG Tab PO ONE (11:01)
[2022-09-25] MEDS ORDERED: diphenhydrAMINE 25 MG Cap PO ONE (11:03)
[2022-09-25 16:45] LABS: HEMATOCRIT 21.3 % (38.4-49.7); HEMOGLOBIN 7.2 g/dL (12.9-16.9)
[2022-09-25 19:24] VITALS: BP 85/51; PULSE 78
== END 2022-09-25 20:05 | disposition home or self-care (01) ==
LOC: JP.ED 09:24
DX: C61 Malignant neoplasm of prostate (principal); C79.51 Secondary malignant neoplasm of bone; D61.9 Aplastic anemia, unspecified; E78.00 Pure hypercholesterolemia, unspecified; I10 Essential (primary) hypertension; K21.9 Gastro-esophageal reflux disease without esophagitis; Z79.899 Other long term (current) drug therapy; Z88.8 Allergy status to other drugs, medicaments and biological substances
CPT/HCPCS: 36415; 36430; 85014; 85018; 86850; 86900; 86901; 86920; 86922; 99284; A9270; J3490; P9016

== ENCOUNTER 2022-09-27 11:42 | Emergency (ER) | payer MEDICARE, BC ==
[2022-09-27 16:29] LABS: EOSINOPHILS ABSOLUTE AUTO 0.02 K/uL (0.00-0.40); EOSINOPHILS PERCENT AUTO 0.7 % (0.0-5.4); HEMATOCRIT 24.5 % (38.4-49.7); HEMOGLOBIN 8.2 g/dL (12.9-16.9); IMMATURE GRAN ABSOLUTE AUTO 0.08 K/uL (0.00-0.23); IMMATURE GRAN PERCENT AUTO 2.7 % (0.0-0.7); LYMPHOCYTES ABSOLUTE AUTO 0.39 K/uL (0.8-3.3); LYMPHOCYTES PERCENT AUTO 13.1 % (11.4-47.7); MEAN CORPUSCULAR HEMOGLOBIN 30.8 pg (31.6-35.5); MEAN CORPUSCULAR HGB CONC 33.5 g/dL (31.6-35.5); MEAN CORPUSCULAR VOLUME 92.1 fL (81.4-99.0); MONOCYTES ABSOLUTE AUTO 0.29 K/uL (0.20-0.90); MONOCYTES PERCENT AUTO 9.8 % (3.3-12.6); NEUTROPHILS ABSOLUTE AUTO 2.19 K/uL (1.0-7.6); NEUTROPHILS PERCENT AUTO 73.7 % (40.0-78.1); PLATELET COUNT,PLT 43 K/uL (130-375); RED BLOOD CELL COUNT 2.66 M/uL (4.14-5.76)
[2022-09-27 16:44] LABS: ANION GAP 9.5 mmol/L (5.0-14.0); CALCIUM 9.7 mg/dL (8.5-10.1); CREATININE 1.4 mg/dL (0.8-1.3); EST CRCL DRUG DOSING (CG) 57.86 mL/min; POTASSIUM,K 3.5 mmol/L (3.6-5.2)
[2022-09-27] MEDS ORDERED: Ketorolac 15 MG/ML SDV IVPUSH ONE (17:09)
[2022-09-27] MEDS ORDERED: Prochlorperazine 10 MG/2 ML SDV IVPUSH ONE (17:09)
[2022-09-27 17:11] VITALS: BP 123/72; PULSE 80
== END 2022-09-27 18:39 | disposition home or self-care (01) ==
LOC: JP.ED 11:42
DX: G43.909 Migraine, unspecified, not intractable, without status migrainosus (principal); I10 Essential (primary) hypertension; K21.9 Gastro-esophageal reflux disease without esophagitis; Z79.899 Other long term (current) drug therapy; Z88.8 Allergy status to other drugs, medicaments and biological substances
CPT/HCPCS: 36415; 80048; 85025; 96374; 96375; 99284; J0780; J1885